=== PATIENT | female | born 1985 | race Caucasian/White ===

== ENCOUNTER 2020-04-30 10:30 | Outpatient (CLI) | payer MEDICARE, MEDICAID, SELFPAY ==
--- NOTE | ~2020-04-30 | MR_ITS ---
EXAMINATION: MR cervical spine wo con DATE: 04/30/2020 11:17 INDICATION: Chronic neck pain. TECHNIQUE: Magnetic resonance imaging (MRI) of the cervical spine was performed without intravenous c ontrast. Sequences included sagittal T2-weighted FSE, sagittal T2-weighted FS FSE, sagittal T1-weight ed FSE, axial MERGE, and axial T2-weighted FSE. COMPARISON: CT cervical spine 05/13/2018 FINDINGS: Bone alignment is normal. Vertebral body heights are normal. Intervertebral disc heights ar e normal. The spinal cord signal intensity is normal. The following disc levels are specifically disc ussed: C2-C3: The disc does not extend beyond the endplate margin. There is no uncovertebral joint osteoarth ritis. There is no facet joint osteoarthritis. There is no neural foraminal stenosis. There is no ino tral canal stenosis. C3-C4: There is a central protrusion. There is mild bilateral uncovertebral joint osteoarthritis. The re is no facet joint osteoarthritis. There is mild right neural foraminal stenosis. There is no centr al canal stenosis. C4-C5: There is a central protrusion. There is no uncovertebral joint osteoarthritis. There is no fac et joint osteoarthritis. There is no neural foraminal stenosis. There is no central canal stenosis. C5-C6: There is a left central protrusion. There is no uncovertebral joint osteoarthritis. There is n o facet joint osteoarthritis. There is no neural foraminal stenosis. There is no central canal stenos is. C6-C7: There is a left central protrusion. There is no uncovertebral joint osteoarthritis. There is n o facet joint osteoarthritis. There is no neural foraminal stenosis. There is no central canal stenos is. C7-T1: The disc does not extend beyond the endplate margin. There is no uncovertebral joint osteoarth ritis. There is mild bilateral facet joint osteoarthritis. There is no neural foraminal stenosis. The re is no central canal stenosis. IMPRESSION: 1. Mild cervical spondylosis. Reviewed, dictated and finalized at location A.
== END 2020-04-30 10:31 | disposition home or self-care (01) ==
PROVIDERS: PCP Internal Medicine
DX: M75.81 Other shoulder lesions, right shoulder (principal); M25.511 Pain in right shoulder; M47.892 Other spondylosis, cervical region
CPT/HCPCS: 72141

== ENCOUNTER 2021-04-04 07:42 | Outpatient (CLI) | payer MEDICARE, MEDICAID, SELFPAY ==
--- NOTE | 2021-04-16 23:19 | WPDSLEEPSTUD ---
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 The patient denies awakening from sleep short of breath. She occasionally awakens at night with heartburn, belching or cough. She occasionally snores but it is never loud enough that others complaint. She constantly has trouble sleeping when she has a cold. She denies waking up gasping for air throughout the night. She occasionally has breathing problems at night observed by herself or others. She frequently sweats excessively at night. She occasionally has heart palpitations or irregular heartbeats during the night. She rarely falls asleep during the day and never while driving. She denies sleep paralysis and cataplexy. She occasionally has vivid dream like scenes upon awakening or falling asleep. She frequently has nightmares. She frequently has thoughts racing through her mind. She occasionally feels sad or depressed. She constantly has anxiety. She constantly notices parts of her body jerk. She occasionally kicks during the night. She occasionally has crawling and aching feelings in her legs. She occasionally has leg pain during the night. She denies grinding her teeth during sleep and awakening with morning jaw pain. She has occasionally bothered by pain during the day and occasionally awakened by pain during the night. She constantly wakes up feeling stiff in the morning with sore or achy muscles. She constantly wakes up with pain in the neck, spine and other joints. In she goes to bed at 10:00 p.m. on weekdays and 11:00 p.m. on the weekends. She states that it takes her 3-4 hours to fall asleep if she does at all. She wakes up 3-4 times throughout the night. When she awakens, she will use the restroom or get a drink. She is unsure how long it takes her to fall back asleep. She wakes up at 7:00 a.m. on the weekdays and 8:00 a.m. on the weekends. She does not have a consistent amount of time that she gets for sleep every night. She will stay in bed for 10-15 minutes after waking up in the morning. She currently lives with her mom. She does not consume any caffeinated beverages within 2 hours of bedtime. She does not engage in physical exercise before bedtime. She will watch television before falling asleep. She does not take naps in the afternoon or the evening. She does not consume any caffeinated beverages during the day. She denies tobacco, alcohol and recreational drug use. [facility] Past Medical History Medical History Anxiety Back pain Depression Family history of diabetes mellitus (DM) Hyperlipidemia Hypertension Insomnia Migraine Obesity Seizure Shoulder pain Tendonitis of knee Vitamin D deficiency Family History Family History Father Hypertension Mother Cerebrovascular accident Grandparent Family history of hypercholesterolemia Carcinoma of colon Family history of malignant neoplasm of breast Other Diabetes mellitus Family history of arthritis Family history of malignant neoplasm Social History Social History Social History: Caffeine-None Smoking status: Never smoker Alcohol intake: never Medications Home Medications Medication Instructions Recorded Confirmed Type albuterol sulfate 90 mcg/actuation 1 puff INHALATION Q4H PRN 03/03/19 12/23/20 History aerosol inhaler alprazolam 1 mg tablet 1 mg PO DAILY PRN 03/03/19 12/23/20 History lbmmrlm-qmwqnebmum-[place]-caffeine 30 1
[2021-04-18 10:46] VITALS: BMI 45.9
== END 2021-04-05 06:46 | disposition home or self-care (01) ==
LOC: ANHCSM 07:43
PROVIDERS: PCP Internal Medicine; Visit Provider Internal Medicine Critical Care Medicine
DX: G47.19 Other hypersomnia (principal); G47.33 Obstructive sleep apnea (adult) (pediatric)
CPT/HCPCS: 95811

== ENCOUNTER 2022-03-30 08:48 | Outpatient (CLI) | payer MEDICARE, MEDICAID, SELFPAY ==
[2022-03-30 19:46] LABS: Alanine Aminotransferase 19 U/L (6-35); Albumin Level 4.2 g/dL (3.5-5.1); Alkaline Phosphatase 87 U/L (38-126); Anion Gap 6 mmol/L (8-16); Aspartate Amino Transferase 25 U/L (14-36); Bilirubin,Total 0.5 mg/dL (0.2-1.3); Blood Urea Nitrogen 15 mg/dL (7-17); Calcium 8.5 mg/dL (8.4-10.2); Carbon Dioxide 23 mmol/L (22-30); Chloride 105 mmol/L (98-107); Cholesterol 177 mg/dL (0-200); Estimated Glomerular Filt Rate 46; Glucose 100 mg/dL (65-110); HDL Direct 43 mg/dL; Potassium 4.3 mmol/L (3.4-5.0); Sodium 134 mmol/L (137-145); Triglycerides 189 mg/dL (<150)
[2022-03-30 19:58] LABS: LDL Cholesterol Direct 92 mg/dL
[2022-03-30 20:31] LABS: Basophils Percent Auto 0.5 % (0.2-1.2); Eosinophils Absolute Auto 0.3 K/mm3 (0-0.3); Eosinophils Percent Auto 3.6 % (0-4.4); Hematocrit 40.5 % (37.0-47.0); Immature Granulocyte Absolute 0.04 K/mm3 (0.00-0.031); Immature Granulocyte Percent A 0.5 % (0-0.5); Lymphocytes Absolute Auto 3.16 K/mm3 (0.9-3.2); Lymphocytes Percent Auto 38.8 % (18.3-44.2); Mean Corpuscular HGB Conc 34.6 g/dl (32-36); Mean Corpuscular Hemoglobin 29.4 pg (26-34); Mean Corpuscular Volume 85.1 fl (80-100); Mean Platelet Volume 9.9 fl (7.4-10.4); Monocytes Absolute Auto 0.6 K/mm3 (0.1-0.6); Monocytes Percent Auto 7.4 % (2.6-8.5); Neutrophils Percent Auto 49.2 % (45.5-73.1); Platelet Count Result 335 k/mm3 (150-375); Red Blood Count 4.76 M/mm3 (4.2-5.4); Red Cell Distribution Width 13.3 % (11.5-14.5); White Blood Count 8.2 K/mm3 (4.5-10.0)
== END 2022-03-30 08:49 | disposition home or self-care (01) ==
LOC: ANHGOSHLAB 08:50
PROVIDERS: PCP Internal Medicine; Visit Provider Nurse Practitioner
DX: E78.5 Hyperlipidemia, unspecified (principal); I10 Essential (primary) hypertension; Z13.29 Encounter for screening for other suspected endocrine disorder
CPT/HCPCS: 36415; 80053; 80061; 85025

== ENCOUNTER 2023-07-12 08:45 | Outpatient (CLI) | payer MEDICARE, MEDICAID, SELFPAY ==
[2023-07-12 13:29] LABS: Basophils Percent Auto 0.4 % (0.2-1.2); Eosinophils Absolute Auto 0.3 K/mm3 (0-0.3); Eosinophils Percent Auto 4.4 % (0-4.4); Hematocrit 43.6 % (37.0-47.0); Hemoglobin 14.6 g/dL (12.0-15.0); Immature Granulocyte Absolute 0.06 K/mm3 (0.00-0.031); Immature Granulocyte Percent A 0.8 % (0-0.5); Lymphocytes Absolute Auto 3.09 K/mm3 (0.9-3.2); Lymphocytes Percent Auto 39.7 % (18.3-44.2); Mean Corpuscular HGB Conc 33.5 g/dl (32-36); Mean Corpuscular Hemoglobin 30.2 pg (26-34); Mean Corpuscular Volume 90.3 fl (80-100); Mean Platelet Volume 9.7 fl (7.4-10.4); Monocytes Absolute Auto 0.5 K/mm3 (0.1-0.6); Monocytes Percent Auto 6.4 % (2.6-8.5); Neutrophils Absolute Auto 3.8 K/mm3 (1.3-6.7); Neutrophils Percent Auto 48.3 % (45.5-73.1); Platelet Count Result 287 k/mm3 (150-375); Red Blood Count 4.83 M/mm3 (4.2-5.4); Red Cell Distribution Width 13.9 % (11.5-14.5); White Blood Count 7.8 K/mm3 (4.5-10.0)
[2023-07-12 13:39] LABS: Vitamin D 25 Hydroxy 31.4 ng/mL
[2023-07-12 13:54] LABS: Alanine Aminotransferase 17 U/L (6-35); Albumin Level 4.2 g/dL (3.5-5.1); Alkaline Phosphatase 89 U/L (38-126); Anion Gap 10 mmol/L (4-12); Aspartate Amino Transferase 24 U/L (14-36); Bilirubin,Total 0.4 mg/dL (0.2-1.3); Blood Urea Nitrogen 10 mg/dL (7-17); Calcium 8.8 mg/dL (8.4-10.2); Carbon Dioxide 17 mmol/L (22-30); Chloride 111 mmol/L (98-107); Estimated Glomerular Filt Rate 55; Glucose 97 mg/dL (65-110); HDL Direct 45 mg/dL; Potassium 3.9 mmol/L (3.4-5.0); Sodium 138 mmol/L (137-145); Triglycerides 184 mg/dL (<150)
[2023-07-12 14:10] LABS: LDL Cholesterol Direct 127 mg/dL
[2023-07-12 14:34] LABS: Cholesterol 208 mg/dL (0-200)
== END 2023-07-12 08:46 | disposition home or self-care (01) ==
PROVIDERS: PCP Internal Medicine; Visit Provider Nurse Practitioner
DX: E78.5 Hyperlipidemia, unspecified (principal); E55.9 Vitamin D deficiency, unspecified; I10 Essential (primary) hypertension; Z13.29 Encounter for screening for other suspected endocrine disorder
CPT/HCPCS: 36415; 80053; 80061; 82306; 85025

== ENCOUNTER 2024-04-22 14:41 | Outpatient (CLI) | payer MEDICARE, MEDICAID, SELFPAY ==
--- OUTSIDE RECORDS SUMMARY | 2024-04-22 16:38 | XMS_ITS | Encounter Summary ---
Author Organization [facility] Address [address] [place] [address] Care Team Providers Care Teacher Selection Specialist Name Role Phone Hebert Rebollar DO Primary Care Provider Reason for Visit * Reason Onset Date Comments MEDICATION REFILL 07/24/2022 Encounter Details Date Type Department Care Team (Late st Contact Info) Description 07/24/2022 Refill [facility] - [facility]rology [address] [place] [address], [place] [address] Jh Woodall MD [address] [place] [phone] MEDICATION REFILL Social History Tobacco Use Types Packs/Day Years Used Date Smoking Tobacco: Never Smokeless Tobacco: Never Alcohol Use Standard Drinks/Week Comments No 0 (1 standard drink = 0.6 oz pur e alcohol) Sex and Gender Information Value Date Recorded Sex Assigned at Female 07/26/2022 6:33 PM CDT Gender Identity Female 07/26/2022 6:33 PM CDT Sexual Orientation Straight 07/26/2022 6: 33 PM CDT documented as of this encounter Miscellaneous Notes * Telephone Encounter - Chaya Wharton - 07/24/2022 2:43 PM CDT Refill Request Michelle Torres YVONNE: 01/25/2022Dec due: 07/24/2022 NOV scheduled: 07/24/2022 LRF: 11/14/2021 Qty Disp: 15 tablet # of refills: 0 Allergies: Allergies Allergen Reactions ??? Azithromycin Skin Reactions ??? Naproxen Swelling Pended Medication Order: Requested Prescriptions Pending Prescriptions Disp Refills ??? ALPRAZolam (Xanax) 1 MG tablet 15 tablet 0 Sig: Take 1 (one) tablet by mouth once daily as needed for Anxiety documented in this encounter Plan of Treatment Upcoming Encounters Date Type Department Care Team (Late st Contact Info) Description 04/24/2024 10:30 AM CDT Office Visit [facility] - [facility] [place] [phone] Yennifer Wade APRN-SENIOR PROJECT ARCHITECT [address] [place] [phone] documented as of this encounter Visit Diagnoses Not on filedocumented in this encounter Care Teams Teacher Selection Specialist Relationship Specialty Start Date End Date Hebert Rebollar DO PCP - General 05/16/16 documented as of this encounter
--- OUTSIDE RECORDS SUMMARY | 2024-04-22 16:38 | XMS_ITS | Encounter Summary ---
Author Organization [facility] Address [address] [place] [address] Care Team Providers Care Azure Principal Solution Specialist Name Role Phone Hebert Rebollar DO Primary Care Provider [phone] Reason for Visit * Reason Onset Date Comments MEDICATION REFILL 12/19/2020 Encounter Details Date Type Department Care Team (Late st Contact Info) Description 12/19/2020 Refill [facility] [address] [place] [address] Jh Woodall MD [address] [place] [phone] MEDICATION REFILL Social History Tobacco Use Types [...] encounter Miscellaneous Notes * Telephone Encounter - Bernie Grider - 12/20/2020 8:17 AM CST Last OV 07-02-20 UTIVE MARKETING ASSISTANT documented in this encounter Plan of Treatment Upcoming Encounters Date Type Department Care Team (Late st Contact Info) Description 04/24/2024 10:30 AM CDT Office Visit [facility] - [facility]rology [address] [place] [phone] Yennifer Wade APRN-POLO COACH [address] [place] [phone] documented as of this encounter Visit Diagnoses Not on filedocumented in this encounter Care Teams Azure Principal Solution Specialist Relationship Specialty Start Date End Date Hebert Rebollar DO PCP - General 05/16/16 documented as of this encounter
--- OUTSIDE RECORDS SUMMARY | 2024-04-22 16:38 | XMS_ITS | Encounter Summary ---
Author Organization [facility] Address [address] [facility] [place] [address] Care Team Providers Care Home Insurance Agent Name Role Phone Hebert Rebollar DO Primary Care Provider [phone] Reason for Visit * Reason Onset Date Comments MEDICATION REFILL 06/16/2020 Encounter Details Date Type Department Care Team (Late Contact Info) Description 06/16/2020 Refill [facility] [address] [place] [address] Jh Woodall MD [address] [place] [phone] MEDICATION REFILL Social History Tobacco Use Types [...] PM CDT documented as of this encounter Plan of Treatment Upcoming Encounters Date Type Department Care Team (Late Contact Info) Description 04/24/2024 10:30 AM CDT Office Visit [facility] - [facility]rology [address] [place] [phone] Yennifer Wade, SUCTION DRUM DRIER OPERATOR-ACCOUNT ASSOCIATE [address] [place] [phone] documented as of this encounter Visit Diagnoses Diagnosis Migraine without aura and without status migrainosus, not intractable Migraine without aura, without mention of intractable migraine without mention of status migrainosus documented in this encounter Care Teams Home Insurance Agent Relationship Specialty Start Date End Date Hebert Rebollar DO PCP - General 05/16/16 documented as of this encounter
--- OUTSIDE RECORDS SUMMARY | 2024-04-22 16:38 | XMS_ITS | Clinical Summary ---
Author Organization [facility] Address [address] [place] [address] Care Team Providers Care Ad Setter Name Role Phone Hebert Rebollar DO Primary Care Provider [phone]- [phone] Allergies Active Allergy Reactions Criticality Noted Date Comments Azithromycin Swelling Medium 07/04/2016 Naproxen Rash,Swelling Medium 07/04/2016 Reaction: Rash, Prednisone Hives Medium 04/11/2024 Sumatriptan Other (See comments) Low 09/20/2023 Has panic attacks Medications albuterol sulfate (PROAIR RESPICLICK) 90 mcg/actuation aerosol powdr breath activated inhale 2 puff by inhalation route every 4 - 6 hours as needed 0 Inhaler 0 017 Active zonisamide (ZONEGRAN) 100 mg capsule TAKE 4 CAPSULES BY MOUTH ONCE DAILY 021 Active amLODIPine (NORVASC) 10 mg tablet Take 1 tablet (10 mg total) by mouth daily Active mupirocin (BACTROBAN) 2 % ointment Apply topically 2 (two) times a day 024 Active gabapentin (NEURONTIN) 300 mg capsuleIndicat ions:Bilateral occipital neuralgia,Intr actable migraine without aura and without status migrainosus Take 1 capsule (300 mg total) by mouth 3 (three) times a day 270 capsule 3 024 Active galcanezumab-g nlm (Emgality Syringe) 120 mg/mL syringeIndicat ions:Bilateral occipital neuralgia,Intr actable migraine without aura and without status migrainosus Inject 120 mg under the skin every 30 (thirty) days 1 mL 11 Active naloxone (NARCAN) 4 mg/actuation spray,non-aero solIndications :Intractable migraine without aura and without status migrainosus Administer 1 spray into affected nostril(s) as needed for opioid reversal or respiratory depression Call 911. Administer a single spray in one nostril. Repeat every 3 minutes as needed if no or minimal response. 1 each 3 Active butalbital-angelito taminophen-caf feine-codeine (FIORICET WITH CODEINE) 28-270-54-30 mg per capsuleIndicat ions:Bilateral occipital neuralgia,Intr actable migraine without aura and without status migrainosus Take 1 capsule by mouth every 6 (six) hours as needed for headaches (No additional Tylenol or acetaminophen with this medication.) 8 capsule 3 025 Active hydroCHLOROthi azide 12.5 mg tablet Take 1 tablet (12.5 mg total) by mouth daily Active candesartan (ATACAND) 4 mg tabletIndicati ons:Intractabl e migraine without aura and without status migrainosus Take 1 tablet (4 mg total) by mouth daily 30 tablet 2025 Active ALPRAZolam (XANAX) 1 mg tabletIndicati ons:Bilateral occipital neuralgia,Intr actable migraine without aura and without status migrainosus Take 1 tablet (1 mg total) by mouth as needed for anxiety 8 tablet 3 025 Active ALPRAZolam (XANAX) 1 mg tabletIndicati ons:Bilateral occipital neuralgia,Intr actable migraine without aura and without status migrainosus Take 1 tablet (1 mg total) by mouth as needed for anxiety 8 tablet 3 024 2024 Discontinued(R eorder) butalbital-angelito taminophen-caf feine-codeine (FIORICET WITH CODEINE) 54-470-43-30 mg per capsuleIndicat ions:Bilateral occipital neuralgia,Intr actable migraine without aura and without status migrainosus Take 1 capsule by mouth every 4 (four) hours as needed for headaches 8 capsule 3 024 2024 Discontinued Active Problems Problem Noted Date Diagnosed Date Intractable migraine without aura and without status migrainosus 10/03/2017 Assessment & Plan (04/11/2024 12:02 PM [facility]): Patient has been doing well on Emgality 120 mg monthly, gabapentin 300 mg 3 times a day and sparing use of Fioricet with codeine. She had an uptake in her migraines in February which corresponded to an elevation of her blood pressure. She is currently on amlodipine and hydrochlorothiazide but continues to record elevated blood pressures. We discussed therapeutic options. We will add candesartan which helps with migraines and blood pressure. Side effects reviewed. Start candesartan 4 mg daily. Continue Emgality 120 mg monthly. Continuous sparing use of Fioricet with codeine. Continue Xanax which also seems to help when she has a headache. Side effects reviewed. Follow up in six months Assessment & Plan (09/20/2023 12:10 PM CDT): The patient reports that she is doing well on her combination of Emgality for prevention and gabapentin for both treatment of her headaches and her occipital neuralgia. She reports no side effects from these medications She takes Xanax or Fioricet with codeine sparingly for acute treatment with benefit. She reports no side effects. Continue these medications. Follow up in six months. Bilateral occipital neuralgia 10/03/2017 Seizures 12/11/2016 Assessment & Plan (04/11/2024 12:01 PM [facility]): Continue zonisamide 400 mg daily. Follow up with the epilepsy clinic at [facility]. Encounters Date Type Department Care Team Description 04/14/2024 Results [facility] [address] [place] [phone] Jh Woodall MD 04/11/2024 11:35 AM [facility] Lab [address] [place] [id number] Bilateral occipital neuralgia; Intractable migraine without aura and without status migrainosus 04/11/2024 11:00 AM [facility] [address] [place] [phone] Jh Woodall MD Bilateral occipital neuralgia; Intractable migraine without aura and without status migrainosus from Last 3 Months Surgical History Surgery Date Site/Laterality Comments SECTION c section BRAIN SURGERY brain surgery SECTION Medical History Medical History Date Comments Asthma Asthma; Comments : DWL 02/29/2016 - Seizure disorder (HCC) Seizure d isorder Hx Other Medical Headache, migra ine Depression Migraines Family History Medical History Relation Name Comments Cancer Other 1 Family history of Cancer, unknown; Arthritis Other 2 Family history of Arthritis; Diabetes Other 3 Family history of Diabetes mellitus; Alcohol abuse Other 4 Family history of Alcoholism; Hypertension Other 5 Family history of Hypertension; Mental illness Other 6 Family histor y of Mental illness; Seizures Other 7 Family history of Seizure disorder; Stroke Other 8 Family history of Stroke; Relation Name Status Comments Other 1 Other 2 Other 3 Other 4 Other 5 Other 6 Other 7 Other 8 Social History Tobacco Use Types Packs/Day Years Used Date Smoking Tobacco: Never Smokeless Tobacco: Never Alcohol Use Standard Drinks/Week Comments Never 0 (1 standard drink = 0.6 oz pur e alcohol) AUDIT-C Answer Date Recorded Q1: How often do you have a drink containing alcohol? Never 09/20/2023 Q2: How many drinks containi ng alcohol do you have on a typical day when you are drinking? Patient does not drink Q3: How often do you have si x or more drinks on one occasion? Never 09/20/2023 Comments Unknown Sex and Gender Information Value Date Recorded Sex Assigned at Not on file Legal Sex Female 4:21 AM [facility] Gender Identity Not on file Sexual Orientation Not on file Obstetrics History Last Filed Vital Signs Vital Sign Reading Time Taken Comments Blood Pressure 132/98 04/11/2024 10:56 AM [facility] Pulse 89 04/11/2024 10:56 AM [facility] Temperature 36.3 C (97.3 F) 04/22/2020 9:16 AM [facility] Respiratory Rate 17 09/20/2023 9:59 AM CDT Oxygen Saturation 99% 04/11/2024 10:56 AM [facility] Inhaled Oxygen Concentration - - Weight 108.9 kg (240 lb) 04/11/2024 10:56 AM [facility] Height 154.9 cm (5' 1 ) 04/11/2024 10:56 AM [facility] Body Mass Index 45.35 04/11/2024 10:56 AM [facility] Plan of Treatment Health Maintenance Due Date Last Done Comments Breast Cancer Screening-Mammogram 1983 Cervical Cancer Screening 1983 Depression Screening 1983 Hepatitis C Screening 1983 DTaP/Tdap/Td Vaccine (1 - Tdap) 07/19/1994 Varicella Vaccines (1 of 2 - 13+ 2-dose series) 07/19/1996 Hepatitis B Screening 07/19/2001 Regular Well Visit/Exam 18-64 07/19/2001 Covid-19 Vaccine (2 - 2023-2 5 season) 2023 08/06/2020 Influenza Vaccine (#1) 2023 HPV Vaccines Aged Out No longer eligi ble based on patient's age to complete this topic Pneumococcal vaccine <65 Aged Out No longer eligible based on patient's age to complete this topic Procedures Procedure Name Priority Date/Time Associated Diagnosis Comments EGFR Routine 04/11/2024 11:36 AM [facility] Bilateral occipital neuralgia Intractable migraine without aura and without status migrainosus DIFFERENTIAL AUTO Routine 04/11/2024 11: 36 AM [facility] Bilateral occipital neuralgia Intractable migraine without aura and without status migrainosus CBC WITH AUTO DIFFERENTIAL Routine 04/11/2024 11:36 AM [facility] Bilateral occipital neuralgia Intractable migraine without aura and without status migrainosus COMPREHENSIVE METABOLIC PANEL Routine 04/11/2024 11:36 AM [facility] Bilateral occipital neuralgia Intractable migraine without aura and without status migrainosus from Last 3 Months Results * eGFR (04/11/2024 11:36 AM [facility]) eGFR 61 >=60 mL/min/1. 73 m2 Comment: Interpretive Data Reference Interval Normal >/= 90 mL/min/1.73m2 Mildly decreased* 60 - 89 mL/min/1.73m2 Mildly to moderately decreased 45 - 59 mL/min/1.73m2 Moderately to severely decreased 30 - 44 mL/min/1.73m2 Severely decreased 15 - 29 mL/min/1.73m2 Kidney Failure < 15 mL/min/1.73m2 *Relative to young adult level Estimated glomerular filtration rate is determined by the 2020 CKD-EPI equation recommended by the National Kidney Foundation (A Unifying Approach to GFR Estimation: Recommendations of the NKF-ASK Task Force on Reassessing the Inclusion of Race in Diagnosing Kidney Disease, JASN 2020). The CKD-EPI equation should not be used for patients with unstable renal function and has not been validated in children and those over 70. Current interpretive data was last reviewed 2020. Blood 04/11/2024 11:3 6 AM [facility] 04/11/2024 3:22 PM [facility] us Jh Woodall MD LAB BLOOD ORDERABLES Dalia jaeger Result [facility] [address] [place] [address] * Differential, auto (04/11/2024 11:36 AM [facility]) Neutrophil abs 3.7 1.5 - 6.5 K/cumm Imm gran abs 0.0 0.0 - 0.1 K/cumm [facility] Lymphocyte abs 2.6 0.8 - 3.3 K/cumm [facility] Monocyte abs 0.6 0.2 - 0.8 K/cumm [facility] Eosinophil abs 0.3 0.0 - 0.5 K/cumm [facility] Basophil abs 0.0 0.0 - 0.1 K/cumm [facility] Neutrophil pct 50.8 % [facility] Comment: Interpretive Data Percent cell count reference ranges are not reported, since discordance with absolute values may lead to misinterpretation of CBC data. Current Interpretive Data was last revised on 2017. Imm gran pct 0.4 % [facility] Comment: Interpretive Data Percent cell count reference ranges are not reported, since discordance with absolute values may lead to misinterpretation of CBC data. Current Interpretive Data was last revised on 2017. Lymphocyte pct 36.2 % [facility] Comment: Interpretive Data Percent cell count reference ranges are not reported, since discordance with absolute values may lead to misinterpretation of CBC data. Current Interpretive Data was last revised on 2017. Monocyte pct 8.5 % [facility] Comment: Interpretive Data Percent cell count reference ranges are not reported, since discordance with absolute values may lead to misinterpretation of CBC data. Current Interpretive Data was last revised on 2017. Eosinophil pct 3.6 % [facility] Comment: Interpretive Data Percent cell count reference ranges are not reported, since discordance with absolute values may lead to misinterpretation of CBC data. Current Interpretive Data was last revised on 2017. Basophil pct 0.5 % [facility] Comment: Interpretive Data Percent cell count reference ranges are not reported, since discordance with absolute values may lead to misinterpretation of CBC data. Current Interpretive Data was last revised on 2017. Blood 04/11/2024 11:3 6 AM [facility] 04/11/2024 3:22 PM [facility] Jh Woodall MD LAB BLOOD ORDERABLES Dalia jaeger Result [facility] [address] Department of Laboratories [place], [place] [id number] * CBC with auto differential (04/11/2024 11:36 AM [facility]) WBC 7.3 3.8 - 9.9 K/cumm Hgb 14.2 11.9 - 15.5 g/dL [facility] Hct 41.3 35.6 - 45.5 % [facility] Plt 363 150 - 400 K/cumm [facility] MPV 9.6 9.1 - 12.3 fL [facility] RBC 4.70 3.90 - 5.20 M/cumm [facility] MCV 87.9 81.3 - 96.4 fL [facility] MCH 30.2 27.1 - 33.3 pg [facility] MCHC 34.4 32.3 - 35.7 g/dL [facility] RDW CV 13.7 11.1 - 14.9 % [facility] RDW SD 44.1 35.7 - 48.1 fL [facility] NRBC abs 0.00 0.00 - 0.01 K/cumm [facility] Blood 04/11/2024 11:3 6 AM [facility] 04/11/2024 3:22 PM [facility] us Jh Woodall MD LAB BLOOD ORDERABLES Dalia mil Result [facility] [address] Department [place] [address] * (ABNORMAL) Comprehensive metabolic panel (04/11/2024 11:36 AM [facility]) Sodium 139 135 - 145 mmol/L Potassium, pl 3.4 3.3 - 4.9 mmol/L [facility] Chloride 103 97 - 110 mmol/L [facility] CO2 19(L) 22 - 32 mmol/L [facility] Anion gap 17(H) 2 - 15 mmol/L [facility] BUN 19 6 - 25 mg/dL [facility] Creatinine 1.16(H) 0.60 - 1.10 mg/dL [facility] Glucose 104 70 - 199 mg/dL [facility] Comment: Interpretive Data Fasting glucose >/= 126 mg/dl is diagnostic for diabetes. Fasting is defined as no caloric intake for at least 8 hours. Fasting glucose between 100 mg/dl to 125 mg/dl is diagnostic of prediabetes. In a patient with classic symptoms of hyperglycemia or hyperglycemic crisis, a random glucose >/= 200 mg/dl is diagnostic for diabetes. In the absence of unequivocal hyperglycemia, results should be confirmed by repeat testing. The classification and Diagnosis of Diabetes Diabetes Care 202; 46: S19-S40. Current interpretive data was last revised 2022. Calcium 9.4 8.5 - 10.3 mg/dL [facility] Bilirubin, total 0.2 0.1 - 1.2 mg/dL [facility] Protein, pl 7.6 6.5 - 8.5 g/dL [facility] Albumin 4.4 3.5 - 5.0 g/dL [facility] Alk phos 93 40 - 130 Units/L [facility] ALT 19 7 - 45 Units/L [facility] AST 18 10 - 45 Units/L [facility] Blood 04/11/2024 11:3 6 AM [facility] 04/11/2024 3:22 PM [facility] Jh Woodall MD LAB BLOOD ORDERABLES Dalia l Result [facility] [address] Department [place] [address] from Last 3 Months Insurance [employer] Member Subscriber Plan / Payer ( fective 2020-Present) Name:Michelle Torres E Relation to Subscriber:Self Name:Michelle Torres E Payer ID:[id number] Group ID:Not on file Type:MEDICAID [place] Address: [place] [id number] [employer] MEDIC[employer] HMO Care Teams Ad Setter Relationship Specialty Start Date End Date Hebert Rebollar DO PCP - General 05/12/16
--- OUTSIDE RECORDS SUMMARY | 2024-04-22 16:38 | XMS_ITS | Referral Summary ---
Author Organization [facility] Address [address] [place] [address] Care Team Providers Care Beveller Operator Name Role Phone Hebert Rebollar DO Primary Care Provider +1- [phone] Encounters Date Type Department Care Team Description 04/14/2024 Results [facility] [address] [place] [phone] Jh Woodall MD 04/11/2024 11:35 AM [facility] [address] [phone] Bilateral occipital neuralgia; Intractable migraine without aura and without status migrainosus 04/11/2024 11:00 AM [facility] [address] [place] [phone] Jh Woodall MD Bilateral occipital neuralgia; Intractable migraine without aura and without status migrainosus from Last 3 Months Allergies Active Allergy Reactions Criticality Noted Date [...] every 30 (thirty) days 1 mL 11 024 Active naloxone (NARCAN) 4 mg/actuation spray,non-aero solIndications :Intractable migraine without aura and without status migrainosus Administer 1 spray into affected nostril(s) as needed for opioid reversal or respiratory depression Call 911. Administer a single spray in one nostril. Repeat every 3 minutes as needed if no or minimal response. 1 each 3 024 Active butalbital-angelito taminophen-caf feine-codeine (FIORICET WITH CODEINE) 96-405-49-30 mg per capsuleIndicat ions:Bilateral occipital neuralgia,Intr actable migraine without aura and without status migrainosus Take 1 capsule by mouth every 6 (six) hours as needed for headaches (No additional Tylenol or acetaminophen with this medication.) 8 capsule 3 025 Active hydroCHLOROthi azide 12.5 mg tablet Take 1 tablet (12.5 mg total) by mouth daily 025 Active candesartan (ATACAND) 4 mg tabletIndicati ons:Intractabl e migraine without aura and without status migrainosus Take 1 tablet (4 mg total) by mouth daily 30 tablet 11 025 2025 Active ALPRAZolam (XANAX) 1 mg tabletIndicati [...] eorder) butalbital-angelito taminophen-caf feine-codeine (FIORICET WITH CODEINE) 20-238-82-30 mg per capsuleIndicat ions:Bilateral occipital neuralgia,Intr actable migraine without aura and without status migrainosus Take 1 capsule by mouth every 4 (four) hours as needed for headaches 8 capsule 3 024 2024 Discontinued Active Problems Problem Noted Date Diagnosed Date Intractable migraine without aura and without status migrainosus 10/03/2017 Assessment & Plan (04/11/2024 12:02 PM [facility]): Patient has been doing well on Emgality [...] 12/11/2016 Assessment & Plan (04/11/2024 12:01 PM [facility]): Continue zonisamide 400 mg daily. Follow up with the epilepsy clinic at [facility]. Social History Tobacco Use Types Packs/Day Years [...] on file Legal Sex Female 4:21 AM [facility] Gender Identity Not on file Sexual Orientation Not on file Last Filed Vital Signs Vital Sign Reading Time Taken Comments Blood Pressure 132/98 04/11/2024 10:56 AM [facility] Pulse 89 04/11/2024 10:56 AM [facility] Temperature 36.3 C (97.3 F) 04/22/2020 9:16 AM [facility] Respiratory Rate 17 09/20/2023 9:59 AM CDT Oxygen Saturation 99% 04/11/2024 10:56 AM [facility] Inhaled Oxygen Concentration - - Weight 108.9 kg (240 lb) 04/11/2024 10:56 AM [facility] Height 154.9 cm (5' 1 ) 04/11/2024 10:56 AM [facility] Body Mass Index 45.35 04/11/2024 10:56 AM [facility] Plan of Treatment Not on file Procedures Procedure Name Priority Date/Time Associated Diagnosis Comments EGFR Routine 04/11/2024 11:36 AM [facility] Bilateral occipital neuralgia Intractable migraine without aura and without status migrainosus DIFFERENTIAL AUTO Routine 04/11/2024 11: 36 AM [facility] Bilateral occipital neuralgia Intractable migraine without aura and without status migrainosus CBC WITH AUTO DIFFERENTIAL Routine 04/11/2024 11:36 AM [facility] Bilateral occipital neuralgia Intractable migraine without aura and without status migrainosus COMPREHENSIVE METABOLIC PANEL Routine 04/11/2024 11:36 AM [facility] Bilateral occipital neuralgia Intractable migraine without aura and without status migrainosus from Last 3 Months Results * eGFR (04/11/2024 11:36 AM [facility]) eGFR 61 >=60 mL/min/1. 73 m2 Comment: [...] reviewed 2020. Blood 04/11/2024 11:3 6 AM [facility] 04/11/2024 3:22 PM [facility] Jh Woodall MD LAB BLOOD ORDERABLES Dalia mil Result [facility] [address] [place] [address] * Differential, auto (04/11/2024 11:36 AM [facility]) Neutrophil abs 3.7 1.5 - 6.5 K/cumm Imm gran abs 0.0 0.0 - 0.1 K/cumm [facility] Lymphocyte abs 2.6 0.8 - 3.3 K/cumm [facility] Monocyte abs 0.6 0.2 - 0.8 K/cumm [facility] Eosinophil abs 0.3 0.0 - 0.5 K/cumm [facility] Basophil abs 0.0 0.0 - 0.1 K/cumm [facility] Neutrophil pct 50.8 % [facility] Comment: Interpretive Data Percent cell count reference ranges are not reported, since discordance with absolute values may lead to misinterpretation of CBC data. Current Interpretive Data was last revised on 2017. Imm gran pct 0.4 % [facility] Comment: Interpretive Data Percent cell count reference ranges are not reported, since discordance with absolute values may lead to misinterpretation of CBC data. Current Interpretive Data was last revised on 2017. Lymphocyte pct 36.2 % [facility] Comment: Interpretive Data Percent cell count reference ranges are not reported, since discordance with absolute values may lead to misinterpretation of CBC data. Current Interpretive Data was last revised on 2017. Monocyte pct 8.5 % [facility] Comment: Interpretive Data Percent cell count reference ranges are not reported, since discordance with absolute values may lead to misinterpretation of CBC data. Current Interpretive Data was last revised on 2017. Eosinophil pct 3.6 % [facility] Comment: Interpretive Data Percent cell count reference ranges are not reported, since discordance with absolute values may lead to misinterpretation of CBC data. Current Interpretive Data was last revised on 2017. Basophil pct 0.5 % [facility] Comment: Interpretive Data Percent cell count reference ranges are not reported, since discordance with absolute values may lead to misinterpretation of CBC data. Current Interpretive Data was last revised on 2017. Blood 04/11/2024 11:3 6 AM [facility] 04/11/2024 3:22 PM [facility] us Jh Woodall MD LAB BLOOD ORDERABLES Dalia jaeger Result [facility] [address] Department [place] [address] * CBC with auto differential (04/11/2024 11:36 AM [facility]) WBC 7.3 3.8 - 9.9 K/cumm Hgb 14.2 11.9 - 15.5 g/dL [facility] Hct 41.3 35.6 - 45.5 % [facility] Plt 363 150 - 400 K/cumm [facility] MPV 9.6 9.1 - 12.3 fL [facility] RBC 4.70 3.90 - 5.20 M/cumm [facility] MCV 87.9 81.3 - 96.4 fL [facility] MCH 30.2 27.1 - 33.3 pg [facility] MCHC 34.4 32.3 - 35.7 g/dL [facility] RDW CV 13.7 11.1 - 14.9 % [facility] RDW SD 44.1 35.7 - 48.1 fL [facility] NRBC abs 0.00 0.00 - 0.01 K/cumm [facility] Blood 04/11/2024 11:3 6 AM [facility] 04/11/2024 3:22 PM [facility] Jh Woodall MD LAB BLOOD ORDERABLES Dalia l Result [facility] [address] Department [place] [address] * (ABNORMAL) Comprehensive metabolic panel (04/11/2024 11:36 AM [facility]) Sodium 139 135 - 145 mmol/L Potassium, pl 3.4 3.3 - 4.9 mmol/L [facility] Chloride 103 97 - 110 mmol/L [facility] CO2 19(L) 22 - 32 mmol/L [facility] Anion gap 17(H) 2 - 15 mmol/L [facility] BUN 19 6 - 25 mg/dL [facility] Creatinine 1.16(H) 0.60 - 1.10 mg/dL [facility] Glucose 104 70 - 199 mg/dL [facility] Comment: Interpretive Data Fasting glucose >/= [...] 2022. Calcium 9.4 8.5 - 10.3 mg/dL [facility] Bilirubin, total 0.2 0.1 - 1.2 mg/dL [facility] Protein, pl 7.6 6.5 - 8.5 g/dL [facility] Albumin 4.4 3.5 - 5.0 g/dL [facility] Alk phos 93 40 - 130 Units/L [facility] ALT 19 7 - 45 Units/L [facility] AST 18 10 - 45 Units/L [facility] Blood 04/11/2024 11:3 6 AM [facility] 04/11/2024 3:22 PM [facility] Jh Woodall MD LAB BLOOD ORDERABLES Dalia l Result [facility] [address] Department [place] [address] from Last 3 Months Insurance [employer] [facility] MEDICARE HMO Care Teams Beveller Operator Relationship Specialty Start Date End Date Hebert Rebollar DO PCP - General 05/12/16
--- OUTSIDE RECORDS SUMMARY | 2024-04-22 16:38 | XMS_ITS | Clinical Summary ---
Author Organization [facility] Address [address] [place] [address] Care Team Providers Care Speedometer Mechanic Name Role Phone Hebert Rebollar DO Primary Care Provider [phone] Source Comments [facility],non-owned Affiliates and Associated Physician Practices is amultiple site organization consisting of ambulatory clinics and hospital sitesin [place], [place], [place] and [place]. This disclosure is being madepursuant to the Care Everywhere program and may not contain all information available regarding this patient. Last updated 17.[facility] Allergies Active Allergy Reactions Criticality Noted Date Comments Azithromycin Skin Reactions Medium 07/04/2016 Naproxen Swelling Low 07/04/2016 Sumatriptan Other 04/19/2023 Panic attack Medications * Be aware that medications may not be up to date on this document. Alwaysverify current medications with the patient. Medication Sig Dispensed Refills Start Date End Date Status albuterol HFA (PROVENTIL;VENTOL IN;PROAIR) 108 (90 Base) MCG/ACT inhaler Inhale 2 (two) puffs by mouth every 6 hours as needed Active albuterol (PROVENTIL;VENTOL IN) (2.5 MG/3ML) 0.083% nebulizer solution Inhale by mouth 4 times daily as needed for Shortness of Breath or Wheezing Active amLODIPine (Norvasc) 10 MG tablet Take 1 (one) tablet by mouth once daily 09/13/2021 Active CPAP Use as directed Active gabapentin (Neurontin) 300 MG capsuleIndication s:Migraine without aura and without status migrainosus, not intractable,Bilat eral occipital neuralgia Take 1 (one) capsule by mouth 3 times daily 270 capsule 1 03/06/2023 Active Galcanezumab-gnlm (Emgality) 120 MG/ML auto-injector penIndications:Mi graine without aura and without status migrainosus, not intractable 2 injection (240 mg) first month [loading dose] followed by 1 injection (120 mg) monthly. 2 mL 5 03/07/2023 Active butalbital-acetam inophen-caffeine (Fioricet) 50-325-40 MG tabletIndications :Migraine without aura and without status migrainosus, not intractable Take 1 (one) tablet by mouth every 6 hours as needed for Headache (No additional Tylenol or acetaminophen with this medication.) 15 tablet 1 06/14/2023 Active pqgn-ubnn-lrjbeuc cesar-codeine (Fioricet With Codeine) 87-705-73-30 MG capsuleIndication s:Migraine without aura and without status migrainosus, not intractable TAKE 1 CAPSULE BY MOUTH EVERY 6 HOURS NEEDED FOR HEADACHE. NO ADDITIONAL TYLENOL OR ACETAMINPHEN WITH THIS MEDICATION 15 capsule 5 06/27/2023 Active mupirocin (Bactroban) 2 % ointment APPLY TOPICALLY TWICE DAILY 06/30/2023 Active ALPRAZolam (Xanax) 1 MG tablet Take 1 (one) tablet by mouth once daily as needed for Anxiety 15 tablet 08/06/2023 Active zonisamide (Zonegran) 100 MG capsule TAKE 4 CAPSULES ONE TIME DAILY 360 capsule 3 01/31/2024 Active Active Problems Problem Noted Date Diagnosed Date Intractable migraine without aura and without status migrainosus 10/03/2017 Bilateral occipital neuralgia 10/03/2017 Seizures 12/11/2016 Encounters Date Type Department Care Team Description 01/31/2024 Refill [facility] - [facility]rology [address] [place] [phone] Yennifer Wade APRN-LUIS ENRIQUE Refill Request from Last 3 Months Social History Tobacco Use Types Packs/Day Years Used Date Smoking Tobacco: Never Smokeless Tobacco: Never Tobacco Cessation:Counseling Given: Not Answered Alcohol Use Standard Drinks/Week Comments No 0 (1 standard drink = 0.6 oz pur e alcohol) Sex and Gender Information Value Date Recorded Sex Assigned at Female 07/26/2022 6:33 PM CDT Gender Identity Female 07/26/2022 6:33 PM CDT Sexual Orientation Straight 07/26/2022 6: 33 PM CDT Last Filed Vital Signs Vital Sign Reading Time Taken Comments Blood Pressure 117/78 07/16/2023 1:46 PM CDT Pulse 93 07/16/2023 1:46 PM CDT Temperature 36.5 C (97.7 F) 01/25/2022 8:48 AM PARK INTERPRETIVE SPECIALIST Respiratory Rate 18 12/27/2016 8:08 AM PARK INTERPRETIVE SPECIALIST Oxygen Saturation 99% 07/16/2023 1:46 PM CDT Inhaled Oxygen Concentration - - Weight 109.8 kg (242 lb) 07/16/2023 1:46 PM CDT Height 154.9 cm (5' 1 ) 07/16/2023 1:46 PM CDT Body Mass Index 45.73 07/16/2023 1:46 PM CDT Plan of Treatment Upcoming Encounters Date Type Department Care Team (Late st Contact Info) Description 04/24/2024 10:30 AM CDT Office Visit [facility]rology [address] [place] [address] Yennifer Wade, DIAZ-GLASSWARE DEFECT REPAIRER [address] [place] [address] Health Maintenance Due Date Last Done Comments LIPID TESTING 1983 MAMMOGRAM 1985 Opioid Medication Agreement - Annual 1983 PAP SMEAR 1983 HIV SCREENING 07/19/1998 HEPATITIS C SCREENING 07/15/2001 DTAP/TDAP/TD VACCINES (1 - Tdap) 07/19/2002 HEPATITIS B VACCINE (1 of 3 - 19+ 3-dose series) 07/19/2002 COVID-19 VACCINE (1 - 2023-2 5 season) 2023 INFLUENZA VACCINE (#1) 2023 DEPRESSION SCREENING 02/13/2024 MEDICARE AWV CALENDAR YEAR 2024 SCREENING FOR DIABETES 04/22/2024 9, 12/25/2016 ZOSTER VACCINE (1 of 2) 07/19/2033 HIB VACCINE Aged Out No longer eligi ble based on patient's age to complete this topic HPV VACCINE Aged Out No longer eligi ble based on patient's age to complete this topic MENINGOCOCCAL (Group B) VACCINE Aged Out No longer eligible b ased on patient's age to complete this topic MENINGOCOCCAL VACCINE Aged Out No geovanni leobardo eligible based on patient's age to complete this topic PNEUMOCOCCAL VACCINE Aged Out No long er eligible based on patient's age to complete this topic Procedures Procedure Name Priority Date/Time Associated Diagnosis Comments COMPREHENSIVE METABOLIC PANEL 11/11/2018 8:24 AM CDT from Last 3 Months or Most Recently Relevant to Health Maintenance Results * (ABNORMAL) COMPREHENSIVE METABOLIC PANEL (11/11/2018 8:24 AM CDT) Glucose 98 65 - 99 mg/dL [facility] INSURANCE BILL BUN 8 6 - 20 mg/dL [facility] INSURANCE BILL Creatinine 0.88 0.57 - 1.00 mg/dL [facility] INSURANCE BILL BUN/Creatinine Ratio 9 9 - 23 [facility] INSURANCE BILL Sodium 141 134 - 144 mmol/L [facility] INSURANCE BILL Potassium 4.3 3.5 - 5.2 mmol/L [facility] INSURANCE BILL Chloride 107(H) 96 - 106 mmol/L [facility] INSURANCE BILL CO2 18(L) 20 - 29 mmol/L [facility] INSURANCE BILL Calcium 9.0 8.7 - 10.2 mg/dL [facility] INSURANCE BILL Protein Total 6.8 6.0 - 8.5 g/dL [facility] INSURANCE BILL Albumin 4.2 3.5 - 5.5 g/dL [facility] INSURANCE BILL Globulin Total 2.6 1.5 - 4.5 g/dL [facility] INSURANCE BILL Albumin/Globulin Ratio 1.6 1.2 - 2.2 [facility] INSURANCE BILL Bilirubin Total 0.2 0.0 - 1.2 mg/dL [facility] INSURANCE BILL Alkaline Phosphatase 94 39 - 117 IU/L [facility] INSURANCE BILL AST 15 0 - 40 IU/L [facility] INSURANCE BILL ALT 18 0 - 32 IU/L [facility] INSURANCE BILL Comment:FASTING 11/11/2018 8:24 AM CDT 11/11/2018 Narrative Resulting Agency Comment Lab Testing performed at: [facility] [address] [facility] [id number] Malcom Holguin MD LAB - CHEMISTRY ORDERABLES [facility] INSURANCE BILL [address] [place] [address] from Last 3 Months or Most Recently Relevant to Health Maintenance Care Teams Speedometer Mechanic Relationship Specialty Start Date End Date Hebert Rebollar DO PCP - General 05/16/16
--- OUTSIDE RECORDS SUMMARY | 2024-04-22 16:38 | XMS_ITS | Patient Health Summary ---
Author Organization [facility] Address [address] [place] [address] Care Team Providers Care Motion Picture Director Name Role Phone Hebert Rebollar DO Primary Care Provider [phone] Note from [facility],non-owned Affiliates and Associated Physician Practices is amultiple site organization consisting of ambulatory clinics and hospital sitesin [place], [place], [place] and [place]. This disclosure is being madepursuant to the Care Everywhere program and may not contain all information available regarding this patient. Last updated 17.[facility] Allergies * Azithromycin(Skin Reactions) -Medium Criticality * Naproxen(Swelling) -Low Criticality * Sumatriptan(Other) Medications * Be aware that medications may not be up to date on this document. Alwaysverify current medications with the patient. * albuterol HFA (PROVENTIL;VENTOLIN;PROAIR) 108 (90 Base) MCG/ACT inhaler Inhale 2 (two) puffs by mouth every 6 hours as needed * albuterol (PROVENTIL;VENTOLIN) (2.5 MG/3ML) 0.083% nebulizer solution Inhale by mouth 4 times daily as needed for Shortness of Breath or Wheezing * amLODIPine (Norvasc) 10 MG tablet(Started 09/13/2021) Take 1 (one) tablet by mouth once daily * CPAP Use as directed * gabapentin (Neurontin) 300 MG capsule(Started 03/06/2023) Take 1 (one) capsule by mouth 3 times daily 1 refill by 03/05/2024 * Galcanezumab-gnlm (Emgality) 120 MG/ML auto-injector pen(Started 03/07/2023) 2 injection (240 mg) first month [loading dose] followed by 1 injection (120 mg) monthly. 5 refills by 03/06/2024 * ogcdpzugkq-lvkccvrozcahp-fivfgyfx (Fioricet) 50-325-40 MG tablet(Started 06/14/2023) Take 1 (one) tablet by mouth every 6 hours as needed for Headache (No additional Tylenol or acetaminophen with this medication.) 1 refill by 12/11/2023 * xerc-tckk-olvmegqyof-codeine (Fioricet With Codeine) 28-216-75-30 MG capsule (Started 06/27/2023) TAKE 1 CAPSULE BY MOUTH EVERY 6 HOURS NEEDED FOR HEADACHE. NO ADDITIONAL TYLENOL OR ACETAMINPHENWITH THIS MEDICATION 5 refills by 12/24/2023 * mupirocin (Bactroban) 2 % ointment(Started 06/30/2023) APPLY TOPICALLY TWICE DAILY * ALPRAZolam (Xanax) 1 MG tablet(Started 08/06/2023) Take 1 (one) tablet by mouth once daily as needed for Anxiety * zonisamide (Zonegran) 100 MG capsule(Started 01/31/2024) TAKE 4 CAPSULES ONE TIME DAILY 3 refills by 01/30/2025 Active Problems Problem Noted Date Diagnosed Date Intractable migraine without aura and without status migrainosus 10/03/2017 Bilateral occipital neuralgia 10/03/2017 Seizures 12/11/2016 Social History Tobacco Use Types Packs/Day Years [...] 36.5 C (97.7 F) 01/25/2022 8:48 AM SCREWMAKER AUTOMATIC Respiratory Rate 18 12/27/2016 8:08 AM SCREWMAKER AUTOMATIC Oxygen Saturation 99% 07/16/2023 1:46 PM CDT Inhaled Oxygen Concentration - - Weight 109.8 kg (242 lb) 07/16/2023 1:46 PM CDT Height 154.9 cm (5' 1 ) 07/16/2023 1:46 PM CDT Body Mass Index 45.73 07/16/2023 1:46 PM CDT Procedures * LAB RESULTS ORDER(Performed 11/13/2018) * LAB RESULTS ORDER(Performed 11/12/2018) * ZONISAMIDE LEVEL(Performed 11/11/2018) * TSH(Performed 11/11/2018) * T4 FREE(Performed 11/11/2018) * COMPREHENSIVE METABOLIC PANEL(Performed 11/11/2018) * CBC W AUTO DIFFERENTIAL(Performed 11/11/2018) * CBC W AUTO DIFFERENTIAL(Performed 12/25/2016) * BASIC METABOLIC PANEL (CALCIUM TOTAL)(Performed 12/25/2016) * CBC W AUTO DIFFERENTIAL(Performed 12/25/2016) * MRI BRAIN WWO CONTRAST(Performed 08/01/2016) * CREATININE BLOOD - POCT (IP) [facility](Performed 08/01/2016) Results * LAB RESULTS ORDER (11/13/2018 9:47 AM CDT) Only the most recent of2 resultswithin the time period is included. Narrative 11/13/2018 9:47 AM CDT Ordered by an unspecified provider. Scanned Document LAB - THERAPEUTIC DR MASSIMO MONITORING ORDERABLES * (ABNORMAL) ZONISAMIDE LEVEL (11/11/2018 8:24 AM CDT) Zonisamide 40.6(H) 10.0 - 40.0 ug/mL [facility] INSURANCE BILL Comment: This test was developed and its performance characteristics determined by [facility]. It has not been cleared or approved by the Food and Drug Administration. Detection Limit = 1.0 FASTING 11/11/2018 8:24 AM CDT 11/11/2018 Narrative Resulting Agency Comment Lab Testing performed at: [facility] [place] [id number] Malcom Holguin MD LAB - CHEMISTRY ORDERABLES [facility] INSURANCE BILL [address] [place] [address] * CBC WITH DIFFERENTIAL (11/11/2018 8:24 AM CDT) Only the most recent of3 resultswithin the time period is included. WBC 6.7 3.4 - 10.8 x10E3/uL [facility] INSURANCE BILL RBC 4.58 3.77 - 5.28 x10E6/uL [facility] INSURANCE BILL Hemoglobin 13.8 11.1 - 15.9 g/dL [facility] INSURANCE BILL Hematocrit 40.0 34.0 - 46.6 % [facility] INSURANCE BILL MCV 87 79 - 97 fL [facility] INSURANCE BILL MCH 30.1 26.6 - 33.0 pg [facility] INSURANCE BILL MCHC 34.5 31.5 - 35.7 g/dL [facility] INSURANCE BILL RDW 13.7 12.3 - 15.4 % [facility] INSURANCE BILL Platelet Count 344 150 - 450 x10E3/uL [facility] INSURANCE BILL Granulocytes % 54 Not Estab. % [facility] INSURANCE BILL Lymphocytes % 37 Not Estab. % [facility] INSURANCE BILL Monocytes % 7 Not Estab. % [facility] INSURANCE BILL Eosinophils % 2 Not Estab. % [facility] INSURANCE BILL Basophils % 0 Not Estab. % [facility] INSURANCE BILL Immature Cells NOT NEEDED [facility] INSURANCE BILL Comment:Ancillary determined the test is not needed. Granulocytes Absolute 3.6 1.4 - 7.0 x10E3/uL [facility] INSURANCE BILL Lymphocytes Absolute 2.5 0.7 - 3.1 x10E3/uL [facility] INSURANCE BILL Monocytes Absolute 0.4 0.1 - 0.9 x10E3/uL [facility] INSURANCE BILL Eosinophils Absolute 0.1 0.0 - 0.4 x10E3/uL [facility] INSURANCE BILL Basophils Absolute 0.0 0.0 - 0.2 x10E3/uL [facility] INSURANCE BILL Immature Granulocytes 0 Not Estab. % [facility] INSURANCE BILL Immature Granulocytes Absolute 0.0 0.0 - 0.1 x10E3/uL [facility] INSURANCE BILL nRBC NOT NEEDED [facility] INSURANCE BILL Comment:Ancillary determined the test is not needed. Comment Hematology NOT NEEDED [facility] INSURANCE BILL Comment: FASTING Ancillary determined the test is not needed. 11/11/2018 8:24 AM CDT 11/11/2018 Narrative Resulting Agency Comment [facility] [address] [facility] [id number] Malcom Holguin MD LAB - HEMATOLOG Y ORDERABLES [facility] INSURANCE BILL [address] [place] [address] * (ABNORMAL) COMPREHENSIVE METABOLIC PANEL (11/11/2018 8:24 [...] Resulting Agency Comment Lab Testing performed at: [facility] [address] [facility] [id number] Malcom Holguin MD LAB - CHEMISTRY ORDERABLES Performing Organization Address [facility] de Phone Number [facility] INSURANCE BILL [address] [place] [address] * TSH (11/11/2018 8:24 AM CDT) Pathologist [facility] TSH 2.050 0.450 - 4.500 uIU/mL [facility] INSURANCE BILL Comment:FASTING 11/11/2018 8:24 AM CDT 11/11/2018 Narrative Resulting Agency Comment Lab Testing performed at: [facility] [id number] Malcom Holguin MD LAB - CHEMISTRY ORDERABLES Performing Organization Address [facility] Number [facility] INSURANCE BILL [address] [place] [address] * T4 FREE (11/11/2018 8:24 AM CDT) Pathologist [facility] T4 Free 1.10 0.82 - 1.77 ng/dL [facility] INSURANCE BILL Comment:FASTING 11/11/2018 8:24 AM CDT 11/11/2018 Narrative Resulting Agency Comment Lab Testing performed at: [address] [id number] Malcom Holguin MD LAB - CHEMISTRY ORDERABLES Performing Organization Address [facility] Phone Number [facility] INSURANCE BILL [address] [place] [address] * (ABNORMAL) BASIC METABOLIC PANEL (CALCIUM TOTAL) (12/25/2016 8:51 AM SCREWMAKER AUTOMATIC) [facility] BUN 12 7 - 26 mg/dL [facility] Creatinine 1.0 0.6 - 1.2 mg/dL [facility] Sodium 139 136 - 145 mmol/L [facility] Potassium 3.8 3.5 - 4.5 mmol/L [facility] Chloride 109(H) 98 - 107 mmol/L [facility] CO2 19(L) 22 - 29 mmol/L [facility] Glucose 96 70 - 115 mg/dL [facility] Calcium 8.7 8.4 - 10.2 mg/dL [facility] Anion Gap 15 8 - 18 [facility] BUN/Creatinine Ratio 12 7 - 23 [facility] Osmolality Calculated 288 270 - 300 mOsm/kg [facility] eGFR >60 >60 mL/min/1.7 3 m2 [facility] Blood specimen (specimen) BLOOD SPECIMEN / Unknown 12/25/2016 8:51 AM SCREWMAKER AUTOMATIC 12/25/2016 9:29 AM SCREWMAKER AUTOMATIC Malcom Holguin MD LAB - CHEMISTRY ORDERABLES Performing Organization Address City/State/[facility] Co de Phone Number [address] [phone] * MRI BRAIN WWO CONTRAST (08/01/2016 4:09 PM CDT) Anatomical Region Laterality Modality Head Other Impressions 08/02/2016 9:14 AM CDT IMPRESSION: 1. 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 This latter finding is nonspecific, but could represent mild hippocampal sclerosis. This report was approved by Abran Freeman M.D. on 08/02/2016 9:08 AM . I, Dr. GARY NAIDU M.D. have personally reviewed and interpreted this examination/study. This report was electronically signed by GARY NAIDU M.D. on 08/02/2016 9:14 AM . Narrative 08/02/2016 9:14 AM CDT EXAMINATION: Magnetic resonance imaging (MRI) of the brain without and with contrast HISTORY: Seizures TECHNIQUE: MRI of the brain was performed prior to and following the uneventful administration of 10 mL Gadavist] intravenous gadolinium contrast according to an epilepsy protocol. This included detailed coronal imaging of the hippocampi and temporal lobes. FINDINGS: No prior study is available for comparison at the time of this dictation. No evidence of acute or chronic hemorrhage is identified. No evidence of acute cerebral infarction is seen. The ventricles are nondilated. No mass effect or midline shift is seen. There is faint enhancement in the right basis pontis most likely representing an incidental capillary telangiectasia. No additional areas of enhancement are identified. 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 The right hippocampus is smaller in size and rotated posteriorly without elevated T2 signal. The corpus callosum and sella appear normal. The posterior fossa, brainstem, and craniocervical junction appear normal. The visualized portions of the orbits, paranasal sinuses, and mastoids appear normal. Normal flow voids are demonstrated in the carotid arteries and basilar artery. The calvarium and visualized cervical spine appear normal. Procedure Note Gary Naidu MD - 05/11/2017 EXAMINATION: Magnetic resonance imaging (MRI) of the brain without andwith contrast HISTORY: Seizures TECHNIQUE: MRI of the brain was performed prior to and following theuneventful administration of 10 mL Gadavist] intravenous gadoliniumcontrast according to an epilepsy protocol. This included detailed coronalimaging of the hippocampi and temporal lobes. FINDINGS: No prior study is available for comparison at the time of thisdictation. No evidence of acute or chronic hemorrhage is identified. No evidence ofacute cerebral infarction is seen. The ventricles are nondilated. No masseffect or midline shift is seen. There is faint enhancement in the rightbasis pontis most likely representing an incidental capillary telangiectasia. No additional areasof enhancement are identified. There is a malformation of corticaldevelopment involving the right occipital and posterior right temporallobes as well as the right parahippocampal gyrus in a pattern representing predominantly polymicrogyria with a smallelement of pachygyria. The right hippocampus is smaller in size androtated posteriorly without elevated T2 signal. The corpus callosum andsella appear normal. The posterior fossa, brainstem, and craniocervical junction appear normal. The visualized portions of the orbits, paranasal sinuses, and mastoidsappear normal. Normal flow voids are demonstrated in the carotid arteriesand basilar artery. The calvarium and visualized cervical spine appearnormal. IMPRESSION IMPRESSION: 1. 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 This latter finding is nonspecific, but couldrepresent mild hippocampal sclerosis. This report was approved by Abran Freeman M.D. on 08/02/2016 9:08 AM . I, Dr. GARY NAIDU M.D. have personally reviewed and interpreted thisexamination/study. This report was electronically signed by GARY NAIDU M.D. on 08/02/20169:14 AM . Malcom Holguin MD MR ORDERABLES * (ABNORMAL) CREATININE BLOOD - POCT (IP) [facility] (08/01/2016) Creatinine POCT 1.45(A) 0.3 - 1.3 mg/dL [facility] eGFR POCT 44(A) 60 ml/min [facility] 08/01/2016 Malcom Holguin MD LAB - POINT OF CARE ORDERABLES [facility] Care Teams Motion Picture Director Relationship Specialty Start Date End Date Hebert Rebollar DO PCP - General 05/16/16
--- OUTSIDE RECORDS SUMMARY | 2024-04-22 16:38 | XMS_ITS | Encounter Summary ---
Author Organization [facility] Address [address] [place] [address] Care Team Providers Care Hard Tile Setter Name Role Phone Hebert Rebollar DO Primary Care Provider [phone] Reason for Visit * Reason Onset Date Comments MEDICATION REFILL 11/19/2020 Encounter Details Date Type Department Care Team (Late Contact Info) Description 11/19/2020 Refill [facility] [address] [place] [address] Jh Woodall MD [address] [place] [phone] MEDICATION REFILL Social History Tobacco Use Types [...] Office Visit [facility] [address] [place] [phone] Yennifer Wade, RESTAURANT KITCHEN AND SERVICE MANAGER-PERSONNEL SCHEDULER [address] [place] [address] documented as of this encounter Visit Diagnoses Diagnosis Migraine without aura and without status migrainosus, not intractable Migraine without aura, without mention of intractable migraine without mention of status migrainosus Bilateral occipital neuralgia Other syndromes affecting cervical region documented in this encounter Care Teams Hard Tile Setter Relationship Specialty Start Date End Date Hebert Rebollar DO PCP - General 05/16/16 documented as of this encounter
--- OUTSIDE RECORDS SUMMARY | 2024-04-22 16:38 | XMS_ITS | Referral Summary ---
Author Organization [facility] [employer] Address [address] [facility] [place] [address] Care Team Providers Care Crop Or Grain Farmer Name Role Phone Hebert Rebollar DO Primary Care Provider [phone]- [phone] Source Comments [facility],non-owned Affiliates and Associated Physician Practices is amultiple site organization consisting of ambulatory clinics and hospital sitesin [place], [place], [place] and [place]. This disclosure is being madepursuant to the Care Everywhere program and may not contain all information available regarding this patient. Last updated 17.[facility] Encounters Date Type Department Care Team Description 01/31/2024 Refill [facility] [address] [place] [address], [facility] [place] [address] Yennifer Wade APRN-LUIS ENRIQUE Refill Request from Last 3 Months Allergies Active Allergy [...] this medication.) 15 tablet 1 06/14/2023 Active bbyo-lpmt-esoiedf cesar-codeine (Fioricet With Codeine) 49-904-03-30 MG capsuleIndication s:Migraine without aura and without [...] 36.5 C (97.7 F) 01/25/2022 8:48 AM AIRCONDITIONING PLANT OPERATOR Respiratory Rate 18 12/27/2016 8:08 AM AIRCONDITIONING PLANT OPERATOR Oxygen Saturation 99% 07/16/2023 1:46 PM CDT Inhaled Oxygen Concentration - - Weight 109.8 kg (242 lb) 07/16/2023 1:46 PM CDT Height 154.9 cm (5' 1 ) 07/16/2023 1:46 PM CDT Body Mass Index 45.73 07/16/2023 1:46 PM CDT Plan of Treatment Upcoming Encounters Date Type Department Care Team (Late st Contact Info) Description 04/24/2024 10:30 AM CDT Office Visit [facility] - Neurology [address] [place] [phone] Yennifer Wade, DIAZ-SENIOR LIVING SALES COUNSELOR [address] [place] [phone] Procedures Procedure Name Priority Date/Time Associated Diagnosis [...] Resulting Agency Comment [facility]: [facility] [address] [facility] [phone] Malcom Holguin MD LAB - CHEMISTRY ORDERABLES [facility] INSURANCE BILL [address] [place] [address] from Last 3 Months or Most Recently Relevant to Health Maintenance Care Teams Crop Or Grain Farmer Relationship Specialty Start Date End Date Hebert Rebollar DO PCP - General 05/16/16
--- OUTSIDE RECORDS SUMMARY | 2024-04-22 16:38 | XMS_ITS | Encounter Summary ---
Author Organization [facility] Healthcare Address [address] [place] [address] Care Team Providers Care Technical Business Analyst Name Role Phone Hebert Rebollar DO Primary Care Provider +1- [phone] Encounter Details Date Type Department Care Team (Late st Contact Info) Description 04/14/2024 [facility] [address] [facility] [address], [place] [address] Jh Woodall MD [address] [facility] [address] [place] [address] Social History Tobacco Use Types Packs/Day Years [...] on file Legal Sex Female 4:21 AM HOME MORTGAGE DISCLOSURE ACT SPECIALIST Gender Identity Not on file Sexual Orientation Not on file documented as of this encounter Plan of Treatment Not on file documented as of this encounter Visit Diagnoses Not on filedocumented in this encounter Care Teams Technical Business Analyst Relationship Specialty Start Date End Date Hebert Rebollar DO PCP - General 05/12/16 documented as of this encounter
--- OUTSIDE RECORDS SUMMARY | 2024-04-22 16:39 | XMS_ITS | Encounter Summary ---
Author Organization [facility] Address [address] [place] [address] Care Team Providers Care Shop Tailor Name Role Phone Hebert Rebollar DO Primary Care Provider [phone] Reason for Visit * Reason Onset Date Comments MEDICATION REFILL 12/15/2019 Encounter Details Date Type Department Care Team (Late Contact Info) Description 12/15/2019 Refill [facility] [address] [place] [address] Jh Woodall MD [address] [place] [phone] MEDICATION REFILL Social History Tobacco Use Types [...] Office Visit [facility] [address] [place] [address], [facility] [place] [phone] Yennifer Wade, DESIGN CHIEF-LAB CLERK [address] [place] [address] documented as of this encounter Visit Diagnoses Diagnosis Migraine without aura and without status migrainosus, not intractable Migraine without aura, without mention of intractable migraine without mention of status migrainosus documented in this encounter Care Teams Shop Tailor Relationship Specialty Start Date End Date Hebert Rebollar DO PCP - General 05/16/16 documented as of this encounter
--- OUTSIDE RECORDS SUMMARY | 2024-04-22 16:39 | XMS_ITS | Encounter Summary ---
Author Organization [facility] Address [address] [facility] [place] [address] Care Team Providers Care Multimedia Coordinator Name Role Phone Hebert Rebollar DO Primary Care Provider Reason for Visit * Reason Onset Date Comments MEDICATION REFILL 12/20/2020 Encounter Details Date Type Department Care Team (Late Contact Info) Description 12/20/2020 Refill [facility] [address] [place] [address] Jh Woodall MD [address] [place] [phone] MEDICATION REFILL Social History Tobacco Use Types [...] Office Visit [facility] [address] [place] [phone] Yennifer Wade, COMMUNITY COORDINATOR FOR HIGH SCHOOL-TRANSFORMER INSPECTOR [address] [place] [address] documented as of this encounter Visit Diagnoses Not on filedocumented in this encounter Care Teams Multimedia Coordinator Relationship Specialty Start Date End Date Hebert Rebollar DO PCP - General 05/16/16 documented as of this encounter
[2024-04-22 19:18] LABS: Basophils Absolute Auto 0.1 K/mm3 (0.0-0.1); Basophils Percent Auto 0.5 % (0.2-1.2); Eosinophils Absolute Auto 0.2 K/mm3 (0-0.3); Eosinophils Percent Auto 1.6 % (0-4.4); Hemoglobin 15.2 g/dL (12.0-15.0); Immature Granulocyte Absolute 0.03 K/mm3 (0.00-0.031); Immature Granulocyte Percent A 0.3 % (0-0.5); Lymphocytes Absolute Auto 3.68 K/mm3 (0.9-3.2); Lymphocytes Percent Auto 38.4 % (18.3-44.2); Mean Corpuscular HGB Conc 35.3 g/dl (32-36); Mean Corpuscular Hemoglobin 30.2 pg (26-34); Mean Corpuscular Volume 85.5 fl (80-100); Mean Platelet Volume 9.6 fl (7.4-10.4); Monocytes Absolute Auto 0.6 K/mm3 (0.1-0.6); Monocytes Percent Auto 5.8 % (2.6-8.5); Neutrophils Absolute Auto 5.1 K/mm3 (1.3-6.7); Neutrophils Percent Auto 53.4 % (45.5-73.1); Platelet Count Result 426 k/mm3 (150-375); Red Blood Count 5.03 M/mm3 (4.2-5.4); Red Cell Distribution Width 13.4 % (11.5-14.5); White Blood Count 9.6 K/mm3 (4.5-10.0)
[2024-04-22 20:47] LABS: Hemoglobin A1C 5.1 % (<5.7)
[2024-04-22 20:57] LABS: Alanine Aminotransferase 26 U/L (6-35); Albumin Level 4.8 g/dL (3.5-5.1); Alkaline Phosphatase 96 U/L (38-126); Anion Gap 15 mmol/L (4-12); Aspartate Amino Transferase 39 U/L (14-36); Bilirubin,Total 0.5 mg/dL (0.2-1.3); Blood Urea Nitrogen 11 mg/dL (7-17); Calcium 9.1 mg/dL (8.4-10.2); Carbon Dioxide 21 mmol/L (22-30); Chloride 99 mmol/L (98-107); Estimated Glomerular Filt Rate 45; Glucose 104 mg/dL (65-110); Potassium 3.2 mmol/L (3.4-5.0); Sodium 135 mmol/L (137-145)
== END 2024-04-22 14:42 | disposition home or self-care (01) ==
LOC: ANHGOSHLAB 14:42
PROVIDERS: PCP Internal Medicine; Visit Provider Internal Medicine
DX: R73.9 Hyperglycemia, unspecified (principal); I10 Essential (primary) hypertension; Z83.3 Family history of diabetes mellitus; E66.01 Morbid (severe) obesity due to excess calories; R94.4 Abnormal results of kidney function studies; L98.9 Disorder of the skin and subcutaneous tissue, unspecified
CPT/HCPCS: 36415; 80053; 82533; 83036; 84443; 85025

== ENCOUNTER 2024-04-23 14:03 | Outpatient (CLI) | payer MEDICARE, MEDICAID, SELFPAY ==
--- OUTSIDE RECORDS SUMMARY | 2024-04-23 15:51 | XMS_ITS | Referral Summary ---
Author Organization [facility] Address [address] [place] [address] Care Team Providers Care Manager Requirements Name Role Phone Hebert Rebollar DO Primary Care Provider [phone]- [phone] Encounters Date Type Department Care Team Description 04/14/2024 Results [facility] [address] [place] [phone] Jh Woodall MD 04/11/2024 11:35 AM WINDOW AND SIDING CRAFTSMAN Lab [address] [address] Bilateral occipital neuralgia; Intractable migraine without aura and without status migrainosus 04/11/2024 11:00 AM WINDOW AND SIDING CRAFTSMAN [facility] [address] [place] [address] Jh Woodall MD Bilateral occipital neuralgia; [...] 6 hours as needed 0 Inhaler 0 02/28/19 17 Active zonisamide (ZONEGRAN) 100 mg capsule TAKE 4 CAPSULES BY MOUTH ONCE DAILY 03/24/19 21 Active amLODIPine (NORVASC) 10 mg tablet Take 1 tablet (10 mg total) by mouth daily Active mupirocin (BACTROBAN) 2 % ointment Apply topically 2 (two) times a day 06/30/19 24 Active gabapentin (NEURONTIN) 300 mg capsuleIndicati ons:Bilateral occipital neuralgia,Intra ctable migraine without aura and without status migrainosus Take 1 capsule (300 mg total) by mouth 3 (three) times a day 270 capsule 3 09/20/19 24 Active galcanezumab-gn lm (Emgality Syringe) 120 mg/mL syringeIndicati ons:Bilateral occipital neuralgia,Intra ctable migraine without aura and without status migrainosus Inject 120 mg under the skin every 30 (thirty) days 1 mL 11 09/20/19 24 Active naloxone (NARCAN) 4 mg/actuation spray,non-aeros olIndications:I ntractable migraine without aura and without status migrainosus Administer 1 spray into affected nostril(s) as needed for opioid reversal or respiratory depression Call 911. Administer a single spray in one nostril. Repeat every 3 minutes as needed if no or minimal response. 1 each 3 09/20/19 24 Active butalbital-acet aminophen-caffe ine-codeine (FIORICET WITH CODEINE) 71-649-59-30 mg per capsuleIndicati ons:Bilateral occipital neuralgia,Intra ctable migraine without aura and without status migrainosus Take 1 capsule by mouth every 6 (six) hours as needed for headaches (No additional Tylenol or acetaminophen with this medication.) 8 capsule 3 03/24/19 25 Active hydroCHLOROthia zide 12.5 mg tablet Take 1 tablet (12.5 mg total) by mouth daily 03/20/19 25 Active candesartan (ATACAND) 4 mg tabletIndicatio ns:Intractable migraine without aura and without status migrainosus Take 1 tablet (4 mg total) by mouth daily 30 tablet 11 04/11/19 25 026 Active ALPRAZolam (XANAX) 1 mg tabletIndicatio ns:Bilateral occipital neuralgia,Intra ctable migraine without aura and without status migrainosus Take 1 tablet (1 mg total) by mouth as needed for anxiety 8 tablet 3 04/11/19 25 Active ALPRAZolam (XANAX) 1 mg tabletIndicatio ns:Bilateral occipital neuralgia,Intra ctable migraine without aura and without status migrainosus Take 1 tablet (1 mg total) by mouth as needed for anxiety 8 tablet 3 09/20/19 24 025 Discontin ued(Reord er) Active Problems Problem Noted Date Diagnosed Date Intractable migraine without aura and without status migrainosus 10/03/2017 Assessment & Plan (04/11/2024 12:02 PM WINDOW AND SIDING CRAFTSMAN): Patient has been doing well on Emgality [...] 12/11/2016 Assessment & Plan (04/11/2024 12:01 PM WINDOW AND SIDING CRAFTSMAN): Continue zonisamide 400 mg daily. Follow up with the epilepsy clinic at [facility]. Social History Tobacco Use Types Packs/Day Years [...] on file Legal Sex Female 4:21 AM WINDOW AND SIDING CRAFTSMAN Gender Identity Not on file Sexual Orientation Not on file Last Filed Vital Signs Vital Sign Reading Time Taken Comments Blood Pressure 132/98 04/11/2024 10:56 AM WINDOW AND SIDING CRAFTSMAN Pulse 89 04/11/2024 10:56 AM WINDOW AND SIDING CRAFTSMAN Temperature 36.3 C (97.3 F) 04/22/2020 9:16 AM WINDOW AND SIDING CRAFTSMAN Respiratory Rate 17 09/20/2023 9:59 AM CDT Oxygen Saturation 99% 04/11/2024 10:56 AM WINDOW AND SIDING CRAFTSMAN Inhaled Oxygen Concentration - - Weight 108.9 kg (240 lb) 04/11/2024 10:56 AM WINDOW AND SIDING CRAFTSMAN Height 154.9 cm (5' 1 ) 04/11/2024 10:56 AM WINDOW AND SIDING CRAFTSMAN Body Mass Index 45.35 04/11/2024 10:56 AM WINDOW AND SIDING CRAFTSMAN Plan of Treatment Not on file Procedures Procedure Name Priority Date/Time Associated Diagnosis Comments EGFR Routine 04/11/2024 11:36 AM WINDOW AND SIDING CRAFTSMAN Bilateral occipital neuralgia Intractable migraine without aura and without status migrainosus DIFFERENTIAL AUTO Routine 04/11/2024 11: 36 AM WINDOW AND SIDING CRAFTSMAN Bilateral occipital neuralgia Intractable migraine without aura and without status migrainosus CBC WITH AUTO DIFFERENTIAL Routine 04/11/2024 11:36 AM WINDOW AND SIDING CRAFTSMAN Bilateral occipital neuralgia Intractable migraine without aura and without status migrainosus COMPREHENSIVE METABOLIC PANEL Routine 04/11/2024 11:36 AM WINDOW AND SIDING CRAFTSMAN Bilateral occipital neuralgia Intractable migraine without aura and without status migrainosus from Last 3 Months Results * eGFR (04/11/2024 11:36 AM WINDOW AND SIDING CRAFTSMAN) eGFR 61 >=60 mL/min/1. 73 m2 Comment: [...] of Race in Diagnosing Kidney Disease, JASN 202). The CKD-EPI equation should not be used for patients with unstable renal function and has not been validated in children and those over 70. Current interpretive data was last reviewed 2020. Blood 04/11/2024 11:3 6 AM WINDOW AND SIDING CRAFTSMAN 04/11/2024 3:22 PM WINDOW AND SIDING CRAFTSMAN Jh Woodall MD LAB BLOOD ORDERABLES Dalia jaeger Result [facility] [address] [place] [address] * Differential, auto (04/11/2024 11:36 AM WINDOW AND SIDING CRAFTSMAN) Neutrophil abs 3.7 1.5 - 6.5 K/cumm Imm gran abs 0.0 0.0 - 0.1 K/cumm [facility] Lymphocyte abs 2.6 0.8 - 3.3 K/cumm [facility] Monocyte abs 0.6 0.2 - 0.8 K/cumm [facility] Eosinophil abs 0.3 0.0 - 0.5 K/cumm [facility] Basophil abs 0.0 0.0 - 0.1 K/cumm [facility] Neutrophil pct 50.8 % [facility] Comment: Interpretive Data Percent cell count reference ranges are not reported, since discordance with absolute values may lead to misinterpretation of CBC data. Current Interpretive Data was last revised on 2017. Imm gran pct 0.4 % [facility] Comment: Interpretive Data Percent cell count reference ranges are not reported, since discordance with absolute values may lead to misinterpretation of CBC data. Current Interpretive Data was last revised on 2017. Lymphocyte pct 36.2 % [facility] Comment: Interpretive Data Percent cell count reference ranges are not reported, since discordance with absolute values may lead to misinterpretation of CBC data. Current Interpretive Data was last revised on 2017. Monocyte pct 8.5 % [facility] Comment: Interpretive Data Percent cell count reference ranges are not reported, since discordance with absolute values may lead to misinterpretation of CBC data. Current Interpretive Data was last revised on 2017. Eosinophil pct 3.6 % [facility] Comment: Interpretive Data Percent cell count reference ranges are not reported, since discordance with absolute values may lead to misinterpretation of CBC data. Current Interpretive Data was last revised on 2017. Basophil pct 0.5 % [facility] Comment: Interpretive Data Percent cell count reference ranges are not reported, since discordance with absolute values may lead to misinterpretation of CBC data. Current Interpretive Data was last revised on 2017. Blood 04/11/2024 11:3 6 AM WINDOW AND SIDING CRAFTSMAN 04/11/2024 3:22 PM WINDOW AND SIDING CRAFTSMAN us Jh Woodall MD LAB BLOOD ORDERABLES Dalia l Result [facility] [address] Department of Laboratories [place], [place] [id number] * CBC with auto differential (04/11/2024 11:36 AM WINDOW AND SIDING CRAFTSMAN) WBC 7.3 3.8 - 9.9 K/cumm Hgb 14.2 11.9 - 15.5 g/dL [facility] Hct 41.3 35.6 - 45.5 % [facility] Plt 363 150 - 400 K/cumm [facility] MPV 9.6 9.1 - 12.3 fL [facility] RBC 4.70 3.90 - 5.20 M/cumm [facility] MCV 87.9 81.3 - 96.4 fL [facility] MCH 30.2 27.1 - 33.3 pg [facility] MCHC 34.4 32.3 - 35.7 g/dL [facility] RDW CV 13.7 11.1 - 14.9 % [facility] RDW SD 44.1 35.7 - 48.1 fL [facility] NRBC abs 0.00 0.00 - 0.01 K/cumm [facility] Blood 04/11/2024 11:3 6 AM WINDOW AND SIDING CRAFTSMAN 04/11/2024 3:22 PM WINDOW AND SIDING CRAFTSMAN us Jh Woodall MD LAB BLOOD ORDERABLES Dalia jaeger Result [facility] [address] [place] [address] * (ABNORMAL) Comprehensive metabolic panel (04/11/2024 11:36 AM WINDOW AND SIDING CRAFTSMAN) Sodium 139 135 - 145 mmol/L Potassium, pl 3.4 3.3 - 4.9 mmol/L [facility] Chloride 103 97 - 110 mmol/L [facility] CO2 19(L) 22 - 32 mmol/L [facility] Anion gap 17(H) 2 - 15 mmol/L [facility] BUN 19 6 - 25 mg/dL [facility] Creatinine 1.16(H) 0.60 - 1.10 mg/dL [facility] Glucose 104 70 - 199 mg/dL [facility] Comment: Interpretive Data Fasting glucose >/= 126 [...] classification and Diagnosis of Diabetes Diabetes Care 2021; 46: S19-S40. Current interpretive data was last revised 2022. Calcium 9.4 8.5 - 10.3 mg/dL [facility] Bilirubin, total 0.2 0.1 - 1.2 mg/dL [facility] Protein, pl 7.6 6.5 - 8.5 g/dL [facility] Albumin 4.4 3.5 - 5.0 g/dL [facility] Alk phos 93 40 - 130 Units/L [facility] ALT 19 7 - 45 Units/L [facility] AST 18 10 - 45 Units/L [facility] Blood 04/11/2024 11:3 6 AM WINDOW AND SIDING CRAFTSMAN 04/11/2024 3:22 PM WINDOW AND SIDING CRAFTSMAN us Jh Woodall MD LAB BLOOD ORDERABLES Dalia jaeger Result [facility] [address] [place] [address] from Last 3 Months Insurance [employer]WA IDWA [facility] MEDICARE HMO Care Teams Manager Requirements Relationship Specialty Start Date End Date Hebert Rebollar DO PCP - General 05/12/16
--- OUTSIDE RECORDS SUMMARY | 2024-04-23 15:51 | XMS_ITS | Referral Summary ---
Author Organization [facility] [employer] Address [address] [facility] [address] Care Team Providers Care Grades 1 Through 5 Teacher Name Role Phone Hebert Rebollar DO Primary Care Provider [phone] Source Comments [facility],non-owned Affiliates and Associated Physician Practices is amultiple site organization consisting of ambulatory clinics and hospital sitesin [place], [place], [place] and [place]. This disclosure is being madepursuant to the Care Everywhere program and may not contain all information available regarding this patient. Last updated 17.[facility] Encounters Date Type Department Care Team Description 01/31/2024 Refill [facility] [address] [place] [address], [facility] [place] [address] Yennifer Wade APRN-LUIS ENRIQUE Refill Request from [...] this medication.) 15 tablet 1 06/14/2023 Active hxcd-vccu-hrmeajd cesar-codeine (Fioricet With Codeine) 94-484-89-30 MG capsuleIndication s:Migraine without aura and without [...] 36.5 C (97.7 F) 01/25/2022 8:48 AM SENIOR BUSINESS DEVELOPMENT ANALYST Respiratory Rate 18 12/27/2016 8:08 AM SENIOR BUSINESS DEVELOPMENT ANALYST Oxygen Saturation 99% 07/16/2023 1:46 PM CDT Inhaled Oxygen Concentration - - Weight 109.8 kg (242 lb) 07/16/2023 1:46 PM CDT Height 154.9 cm (5' 1 ) 07/16/2023 1:46 PM CDT Body Mass Index 45.73 07/16/2023 1:46 PM CDT Plan of Treatment Upcoming Encounters Date Type Department Care Team (Late st Contact Info) Description 05/01/2024 4:00 PM CDT Video Visit [facility] - Neurology [address] [place] [phone] Yennifer Wade, DIAZ-DROP COUNT ASSOCIATE [address] [place] [phone] Procedures Procedure Name Priority Date/Time Associated Diagnosis [...] Resulting Agency Comment [facility]: [facility] [address] [facility] [id number] Malcom Holguin MD LAB - CHEMISTRY ORDERABLES [facility] INSURANCE BILL [address] [place] [address] from Last 3 Months or Most Recently Relevant to Health Maintenance Care Teams Grades 1 Through 5 Teacher Relationship Specialty Start Date End Date Hebert Rebollar DO PCP - General 05/16/16
--- OUTSIDE RECORDS SUMMARY | 2024-04-23 15:51 | XMS_ITS | Encounter Summary ---
Author Organization [facility] Address [address] [facility] [place] [address] Care Team Providers Care Assistant Professor Of Psychology Name Role Phone Hebert Rebollar DO Primary Care Provider [phone] Reason for Visit * Reason Onset Date Comments MEDICATION REFILL 11/19/2020 Encounter Details Date Type Department Care Team (Late Contact Info) Description 11/19/2020 Refill [facility] [address] [place] [address] Jh Woodall MD [address] [place] [phone] MEDICATION REFILL Social History Tobacco Use Types [...] Department Care Team (Late Contact Info) Description 05/01/2024 4:00 PM CDT Video Visit [facility] [address] [place] [phone] Yennifer Wade, LEAD HANDLER-CUTTING AND CREASING PRESS OPERATOR [address] [place] [address] documented as of this encounter Visit Diagnoses Diagnosis Migraine without aura and without status migrainosus, not intractable Migraine without aura, without mention of intractable migraine without mention of status migrainosus Bilateral occipital neuralgia Other syndromes affecting cervical region documented in this encounter Care Teams Assistant Professor Of Psychology Relationship Specialty Start Date End Date Hebert Rebollar DO PCP - General 05/16/16 documented as of this encounter
--- OUTSIDE RECORDS SUMMARY | 2024-04-23 15:51 | XMS_ITS | Encounter Summary ---
Author Organization [facility] Address [address] [facility] [place] [address] Care Team Providers Care Cable Installer Repairer Helper Name Role Phone Hebert Rebollar DO Primary Care Provider Reason for Visit * Reason Onset Date Comments MEDICATION REFILL 07/24/2022 Encounter Details Date Type Department Care Team (Late st Contact Info) Description 07/24/2022 Refill [facility] [address] [place] [address], [place] [address] Jh Woodall MD [address] [place] [phone] MEDICATION REFILL Social History Tobacco Use [...] Description 05/01/2024 4:00 PM CDT Video Visit [facility] [address] [place] [phone] Yennifer Wade APRN-ASSISTANT CENTER MANAGER [address] [place] [phone] documented as of this encounter Visit Diagnoses Not on filedocumented in this encounter Care Teams Cable Installer Repairer Helper Relationship Specialty Start Date End Date Hebert Rebollar DO PCP - General 05/16/16 documented as of this encounter
--- OUTSIDE RECORDS SUMMARY | 2024-04-23 15:51 | XMS_ITS | Encounter Summary ---
Author Organization [facility] Healthcare Address [address] [place] [address] Care Team Providers Care Bus Van Driver Name Role Phone Hebert Rebollar DO Primary Care Provider [phone]- [phone] Encounter Details Date Type Department Care Team (Late st Contact Info) Description 04/14/2024 [facility] [address] [facility] [address], [place] [address] Jh Woodall MD [address] [facility] [address] [place] [address] Social History Tobacco Use Types Packs/Day Years [...] on file Legal Sex Female 4:21 AM ROCK CLIMBING TEAM MEMBER Gender Identity Not on file Sexual Orientation Not on file documented as of this encounter Plan of Treatment Not on file documented as of this encounter Visit Diagnoses Not on filedocumented in this encounter Care Teams Bus Van Driver Relationship Specialty Start Date End Date Hebert Rebollar DO PCP - General 05/12/16 documented as of this encounter
--- OUTSIDE RECORDS SUMMARY | 2024-04-23 15:51 | XMS_ITS | Encounter Summary ---
Author Organization [facility] Address [address] [facility] [place] [address] Care Team Providers Care Dental Coordinator Name Role Phone Hebert Rebollar DO Primary Care Provider [phone] Reason for Visit * Reason Onset Date Comments MEDICATION REFILL 12/20/2020 Encounter Details Date Type Department Care Team (Late Contact Info) Description 12/20/2020 Refill [facility] [address] [place] [address] Jh Woodall MD [address] [place] [phone] MEDICATION REFILL Social History Tobacco Use Types [...] Video Visit [facility] [address] [place] [phone] Yennifer Wade, MOBILE QA TESTER-ANTENNA MACHINE OPERATOR [address] [place] [address] documented as of this encounter Visit Diagnoses Not on filedocumented in this encounter Care Teams Dental Coordinator Relationship Specialty Start Date End Date Hebert Rebollar DO PCP - General 05/16/16 documented as of this encounter
--- OUTSIDE RECORDS SUMMARY | 2024-04-23 15:51 | XMS_ITS | Encounter Summary ---
Author Organization [facility] Address [address] [facility] [place] [address] Care Team Providers Care Grass Farm Laborer Name Role Phone Hebert Rebollar DO Primary Care Provider +1- [phone] Reason for Visit * Reason Onset Date Comments MEDICATION REFILL 06/16/2020 Encounter Details Date Type Department Care Team (Late Contact Info) Description 06/16/2020 Refill [facility] [address] [place] [address] Jh Woodall MD [address] [place] [phone] MEDICATION REFILL Social History Tobacco Use Types [...] Video Visit [facility] [address] [place] [phone] Yennifer Wade, EXTRACTOR OPERATOR SOLVENT PROCESS-RN EMERGENCY ROOM [address] [place] [address] documented as of this encounter Visit Diagnoses Diagnosis Migraine without aura and without status migrainosus, not intractable Migraine without aura, without mention of intractable migraine without mention of status migrainosus documented in this encounter Care Teams Grass Farm Laborer Relationship Specialty Start Date End Date Hebert Rebollar DO PCP - General 05/16/16 documented as of this encounter
--- OUTSIDE RECORDS SUMMARY | 2024-04-23 15:51 | XMS_ITS | Clinical Summary ---
Author Organization [facility] Address [address] [place] [address] Care Team Providers Care Medical Policy Specialist Name Role Phone Hebert Rebollar DO Primary Care Provider +1- [phone] Allergies Active Allergy Reactions Criticality Noted Date [...] Active butalbital-acet aminophen-caffe ine-codeine (FIORICET WITH CODEINE) 60-119-34-30 mg per capsuleIndicati ons:Bilateral occipital neuralgia,Intra ctable [...] 10/03/2017 Assessment & Plan (04/11/2024 12:02 PM HAND STONE POLISHER): Patient has been doing well on Emgality [...] 12/11/2016 Assessment & Plan (04/11/2024 12:01 PM HAND STONE POLISHER): Continue zonisamide 400 mg daily. Follow up with the epilepsy clinic at [facility]. Encounters Date Type Department Care Team Description 04/14/2024 Results [facility] [address] [place] [phone] Jh Woodall MD 04/11/2024 11:35 AM HAND STONE POLISHER Lab [address] [place] [phone] Bilateral occipital neuralgia; Intractable migraine without aura and without status migrainosus 04/11/2024 11:00 AM HAND STONE POLISHER [facility] [address] [place] [phone] Jh Woodall MD Bilateral occipital neuralgia; Intractable [...] on file Legal Sex Female 4:21 AM HAND STONE POLISHER Gender Identity Not on file Sexual Orientation Not on file Obstetrics History Last Filed Vital Signs Vital Sign Reading Time Taken Comments Blood Pressure 132/98 04/11/2024 10:56 AM HAND STONE POLISHER Pulse 89 04/11/2024 10:56 AM HAND STONE POLISHER Temperature 36.3 C (97.3 F) 04/22/2020 9:16 AM HAND STONE POLISHER Respiratory Rate 17 09/20/2023 9:59 AM CDT Oxygen Saturation 99% 04/11/2024 10:56 AM HAND STONE POLISHER Inhaled Oxygen Concentration - - Weight 108.9 kg (240 lb) 04/11/2024 10:56 AM HAND STONE POLISHER Height 154.9 cm (5' 1 ) 04/11/2024 10:56 AM HAND STONE POLISHER Body Mass Index 45.35 04/11/2024 10:56 AM HAND STONE POLISHER Plan of Treatment Health Maintenance Due Date [...] Diagnosis Comments EGFR Routine 04/11/2024 11:36 AM HAND STONE POLISHER Bilateral occipital neuralgia Intractable migraine without aura and without status migrainosus DIFFERENTIAL AUTO Routine 04/11/2024 11: 36 AM HAND STONE POLISHER Bilateral occipital neuralgia Intractable migraine without aura and without status migrainosus CBC WITH AUTO DIFFERENTIAL Routine 04/11/2024 11:36 AM HAND STONE POLISHER Bilateral occipital neuralgia Intractable migraine without aura and without status migrainosus COMPREHENSIVE METABOLIC PANEL Routine 04/11/2024 11:36 AM HAND STONE POLISHER Bilateral occipital neuralgia Intractable migraine without aura and without status migrainosus from Last 3 Months Results * eGFR (04/11/2024 11:36 AM HAND STONE POLISHER) [facility] Signature eGFR 61 >=60 mL/min/1. 73 m2 Comment: [...] reviewed 2020. Blood 04/11/2024 11:3 6 AM HAND STONE POLISHER 04/11/2024 3:22 PM HAND STONE POLISHER us Jh Woodall MD LAB BLOOD ORDERABLES Dalia jaeger Result [facility] [address] Department [place] [address] * Differential, auto (04/11/2024 11:36 AM HAND STONE POLISHER) Neutrophil abs 3.7 1.5 - 6.5 K/cumm Imm gran abs 0.0 0.0 - 0.1 K/cumm [facility] Lymphocyte abs 2.6 0.8 - 3.3 K/cumm [facility] Monocyte abs 0.6 0.2 - 0.8 K/cumm [facility] Eosinophil abs 0.3 0.0 - 0.5 K/cumm [facility] Basophil abs 0.0 0.0 - 0.1 K/cumm [facility] Neutrophil pct 50.8 % [facility] Comment: Interpretive Data Percent cell count reference ranges are not reported, since discordance with absolute values may lead to misinterpretation of CBC data. Current Interpretive Data was last revised on 2017. Imm gran pct 0.4 % [facility] Comment: Interpretive Data Percent cell count reference ranges are not reported, since discordance with absolute values may lead to misinterpretation of CBC data. Current Interpretive Data was last revised on 2017. Lymphocyte pct 36.2 % [facility] Comment: Interpretive Data Percent cell count reference ranges are not reported, since discordance with absolute values may lead to misinterpretation of CBC data. Current Interpretive Data was last revised on 2017. Monocyte pct 8.5 % [facility] Comment: Interpretive Data Percent cell count reference ranges are not reported, since discordance with absolute values may lead to misinterpretation of CBC data. Current Interpretive Data was last revised on 2017. Eosinophil pct 3.6 % [facility] Comment: Interpretive Data Percent cell count reference ranges are not reported, since discordance with absolute values may lead to misinterpretation of CBC data. Current Interpretive Data was last revised on 2017. Basophil pct 0.5 % [facility] Comment: Interpretive Data Percent cell count reference ranges are not reported, since discordance with absolute values may lead to misinterpretation of CBC data. Current Interpretive Data was last revised on 2017. Blood 04/11/2024 11:3 6 AM HAND STONE POLISHER 04/11/2024 3:22 PM HAND STONE POLISHER Jh Woodall MD LAB BLOOD ORDERABLES Dalia jaeger Result [facility] [address] Department [place] [address] * CBC with auto differential (04/11/2024 11:36 AM HAND STONE POLISHER) WBC 7.3 3.8 - 9.9 K/cumm Hgb 14.2 11.9 - 15.5 g/dL [facility] Hct 41.3 35.6 - 45.5 % [facility] Plt 363 150 - 400 K/cumm [facility] MPV 9.6 9.1 - 12.3 fL [facility] RBC 4.70 3.90 - 5.20 M/cumm [facility] MCV 87.9 81.3 - 96.4 fL [facility] MCH 30.2 27.1 - 33.3 pg [facility] MCHC 34.4 32.3 - 35.7 g/dL [facility] RDW CV 13.7 11.1 - 14.9 % [facility] RDW SD 44.1 35.7 - 48.1 fL [facility] NRBC abs 0.00 0.00 - 0.01 K/cumm [facility] Blood 04/11/2024 11:3 6 AM HAND STONE POLISHER 04/11/2024 3:22 PM HAND STONE POLISHER Jh Woodall MD LAB BLOOD ORDERABLES Dalia mil Result [facility] [address] Department [place] [address] * (ABNORMAL) Comprehensive metabolic panel (04/11/2024 11:36 AM HAND STONE POLISHER) Sodium 139 135 - 145 mmol/L Potassium, pl 3.4 3.3 - 4.9 mmol/L [facility] Chloride 103 97 - 110 mmol/L [facility] CO2 19(L) 22 - 32 mmol/L [facility] Anion gap 17(H) 2 - 15 mmol/L [facility] BUN 19 6 - 25 mg/dL [facility] Creatinine 1.16(H) 0.60 - 1.10 mg/dL [facility] Glucose 104 70 - 199 mg/dL [facility] Comment: Interpretive Data Fasting glucose >/= 126 [...] 2022. Calcium 9.4 8.5 - 10.3 mg/dL [facility] Bilirubin, total 0.2 0.1 - 1.2 mg/dL [facility] Protein, pl 7.6 6.5 - 8.5 g/dL [facility] Albumin 4.4 3.5 - 5.0 g/dL [facility] Alk phos 93 40 - 130 Units/L [facility] ALT 19 7 - 45 Units/L [facility] AST 18 10 - 45 Units/L [facility] Blood 04/11/2024 11:3 6 AM HAND STONE POLISHER 04/11/2024 3:22 PM HAND STONE POLISHER Jh Woodall MD LAB BLOOD ORDERABLES Dalia jaeger Result [facility] [address] Department [place] [address] from Last 3 Months Insurance [facility] [employer] MEDIC[employer] HMO Care Teams Medical Policy Specialist Relationship Specialty Start Date End Date Hebert Rebollar DO [facility] - General 05/12/16
--- OUTSIDE RECORDS SUMMARY | 2024-04-23 15:51 | XMS_ITS | Encounter Summary ---
Author Organization [facility] Address [address] [facility] [place] [address] Care Team Providers Care Equipment Operation Instructor Name Role Phone Hebert Rebollar DO Primary Care Provider +1- [phone] Reason for Visit * Reason Onset Date Comments MEDICATION REFILL 12/19/2020 Encounter Details Date Type Department Care Team (Late st Contact Info) Description 12/19/2020 Refill [facility] [address] [place] [address] Jh Woodall MD [address] [place] [phone] MEDICATION REFILL Social History Tobacco Use Types [...] 12/20/2020 8:17 AM CST Last OV 07-02-20 T MONITOR documented in this encounter Plan of Treatment Upcoming Encounters Date Type Department Care Team (Late st Contact Info) Description 05/01/2024 4:00 PM CDT Video Visit [facility] [address] [facility] [place] [phone] Yennifer Wade APRN-MARBLE INSTALLER [address] [place] [phone] documented as of this encounter Visit Diagnoses Not on filedocumented in this encounter Care Teams Equipment Operation Instructor Relationship Specialty Start Date End Date Hebert Rebollar DO PCP - General 05/16/16 documented as of this encounter
--- OUTSIDE RECORDS SUMMARY | 2024-04-23 15:51 | XMS_ITS | Encounter Summary ---
Author Organization [facility] Address [address] [facility] [place] [address] Care Team Providers Care Circulating Process Inspector Name Role Phone Hebert Rebollar DO Primary Care Provider Reason for Visit * Reason Onset Date Comments MEDICATION REFILL 12/15/2019 Encounter Details Date Type Department Care Team (Late Contact Info) Description 12/15/2019 Refill [facility] [address] [place] [address] Jh Woodall MD [address] [place] [phone] MEDICATION REFILL Social History Tobacco Use Types [...] Video Visit [facility] [address] [place] [address], [place] [phone] Yennifer Wade, TAR DISTILLATION SUPERVISOR-BUSINESS SERVICES REPRESENTATIVE [address] [place] [address] documented as of this encounter Visit Diagnoses Diagnosis Migraine without aura and without status migrainosus, not intractable Migraine without aura, without mention of intractable migraine without mention of status migrainosus documented in this encounter Care Teams Circulating Process Inspector Relationship Specialty Start Date End Date Hebert Rebollar DO PCP - General 05/16/16 documented as of this encounter
--- OUTSIDE RECORDS SUMMARY | 2024-04-23 15:51 | XMS_ITS | Patient Health Summary ---
Author Organization [facility] Address [address] [place] [address] Care Team Providers Care Animal Husbandry Professor Name Role Phone Hebert Rebollar DO Primary Care Provider [phone] Note from [facility],non-owned Affiliates and Associated Physician Practices is amultiple site organization consisting of ambulatory clinics and hospital sitesin [place], [place], [place] and [place]. This disclosure is being madepursuant to the Care Everywhere program and may not contain all information available regarding this patient. Last updated 17.[facility] Allergies * Azithromycin(Skin Reactions) -Medium Criticality * [...] mg) monthly. 5 refills by 03/06/2024 * mzdewomnnw-olopyqppcmjji-mrkgbulc (Fioricet) 50-325-40 MG tablet(Started 06/14/2023) Take 1 (one) tablet by mouth every 6 hours as needed for Headache (No additional Tylenol or acetaminophen with this medication.) 1 refill by 12/11/2023 * dahb-xzvu-kcmquwualr-codeine (Fioricet With Codeine) 97-555-24-30 MG capsule (Started 06/27/2023) TAKE 1 CAPSULE [...] 36.5 C (97.7 F) 01/25/2022 8:48 AM SEO MANAGER Respiratory Rate 18 12/27/2016 8:08 AM SEO MANAGER Oxygen Saturation 99% 07/16/2023 1:46 PM CDT [...] CDT) Zonisamide 40.6(H) 10.0 - 40.0 ug/mL [facility] INSURANCE BILL Comment: This test was developed and its performance characteristics determined by [facility]. It has not been cleared or approved by the Food and Drug Administration. Detection Limit = 1.0 FASTING 11/11/2018 8:24 AM CDT 11/11/2018 Narrative Resulting Agency Comment Lab Testing performed at: [facility] [place] [id number] Malcom Holguin MD LAB - CHEMISTRY ORDERABLES [facility] INSURANCE BILL [address] [place] [address] * CBC WITH DIFFERENTIAL (11/11/2018 8:24 AM [...] Resulting Agency Comment [facility]: [facility] [address] [facility] [id number] Malcom Holguin MD LAB - HEMATOLOG Y ORDERABLES [facility] INSURANCE BILL [address] [place] [address] * (ABNORMAL) COMPREHENSIVE METABOLIC PANEL (11/11/2018 8:24 [...] Resulting Agency Comment Lab [facility] performed at: [facility] [address] [facility] [id number] Malcom Holguin MD LAB - CHEMISTRY ORDERABLES Performing Organization Address [facility] de Phone Number [facility] INSURANCE BILL [address] [place] [address] * TSH (11/11/2018 8:24 AM CDT) Pathologist [facility] TSH 2.050 0.450 - 4.500 uIU/mL [facility] INSURANCE BILL Comment:FASTING 11/11/2018 8:24 AM CDT 11/11/2018 Narrative Resulting Agency Comment Lab Testing performed at: [facility] [id number] Malcom Holguin MD LAB - CHEMISTRY ORDERABLES Performing Organization Address [facility] Number [facility] INSURANCE BILL [address] [place] [address] * T4 FREE (11/11/2018 8:24 AM CDT) Pathologist [facility] T4 Free 1.10 0.82 - 1.77 ng/dL [facility] INSURANCE BILL Comment:FASTING 11/11/2018 8:24 AM CDT 11/11/2018 Narrative Resulting Agency Comment Lab Testing performed at: [address] [id number] Malcom Holguin MD LAB - CHEMISTRY ORDERABLES Performing Organization Address [facility] Phone Number [facility] INSURANCE BILL [address] [place] [address] * (ABNORMAL) BASIC METABOLIC PANEL (CALCIUM TOTAL) (12/25/2016 8:51 AM SEO MANAGER) [facility] BUN 12 7 - 26 mg/dL [facility] Creatinine 1.0 0.6 - 1.2 mg/dL [facility] Sodium 139 136 - 145 mmol/L [facility] Potassium 3.8 3.5 - 4.5 mmol/L [facility] Chloride 109(H) 98 - 107 mmol/L [facility] CO2 19(L) 22 - 29 mmol/L [facility] Glucose 96 70 - 115 mg/dL [facility] Calcium 8.7 8.4 - 10.2 mg/dL [facility] Anion Gap 15 8 - 18 [facility] BUN/Creatinine Ratio 12 7 - 23 [facility] Osmolality Calculated 288 270 - 300 mOsm/kg [facility] eGFR >60 >60 mL/min/1.7 3 m2 [facility] Blood specimen (specimen) BLOOD SPECIMEN / Unknown 12/25/2016 8:51 AM SEO MANAGER 12/25/2016 9:29 AM SEO MANAGER Malcom Holguin MD LAB - CHEMISTRY ORDERABLES Performing Organization Address City/State/[facility] Co de Phone Number [address] [phone] * MRI BRAIN WWO CONTRAST (08/01/2016 4:09 [...] * (ABNORMAL) CREATININE BLOOD - POCT (IP) [facility] (08/01/2016) Creatinine POCT 1.45(A) 0.3 - 1.3 mg/dL [facility] eGFR POCT 44(A) 60 ml/min [facility] 08/01/2016 Malcom Holguin MD LAB - POINT OF CARE ORDERABLES [facility] Care Teams Animal Husbandry Professor Relationship Specialty Start Date End Date Hebert Rebollar DO PCP - General 05/16/16
--- OUTSIDE RECORDS SUMMARY | 2024-04-23 15:51 | XMS_ITS | Clinical Summary ---
Author Organization [facility] Address [address] [facility] [place] [address] Care Team Providers Care Streaming Media Specialist Name Role Phone Hebert Rebollar DO Primary Care Provider +1- [phone] Source Comments [facility],non-owned Affiliates and Associated Physician Practices is amultiple site organization consisting of ambulatory clinics and hospital sitesin [place], [place], [place] and [place]. This disclosure is being madepursuant to the Care Everywhere program and may not contain all information available regarding this patient. Last updated 17.[facility] Allergies Active Allergy Reactions Criticality Noted Date [...] this medication.) 15 tablet 1 06/14/2023 Active lwqm-jqif-irbpvuv cesar-codeine (Fioricet With Codeine) 91-712-64-30 MG capsuleIndication s:Migraine without aura and without [...] 01/31/2024 Refill [facility] [address] [place] [phone] Yennifer Wade APRN-LUIS ENRIQUE Refill Request from [...] 36.5 C (97.7 F) 01/25/2022 8:48 AM SYSTEM DISPATCHER Respiratory Rate 18 12/27/2016 8:08 AM SYSTEM DISPATCHER Oxygen Saturation 99% 07/16/2023 1:46 PM CDT [...] Visit [facility] [address] [place] [phone] Yennifer Wade, DIAZ-SECOND WORKER [address] [place] [address] Health Maintenance Due Date Last Done Comments [...] complete this topic MENINGOCOCCAL (Group B) VACCINE SHARED DECISION-MAKING Aged Out No longer eligible based on patient's age to complete this topic MENINGOCOCCAL GROUPS A/C/Y/W VACCINE Aged Out No longer eligible b [...] Agency Comment Lab Testing performed at: [facility] [address] [facility] [id number] Malcom Holguin MD LAB - CHEMISTRY ORDERABLES [facility] INSURANCE BILL [address] [place] [address] from Last 3 Months or Most Recently Relevant to Health Maintenance Care Teams Streaming Media Specialist Relationship Specialty Start Date End Date Hebert Rebollar DO PCP - General 05/16/16
[2024-04-23 19:01] LABS: Free T4 Free Thyroxine 1.27 ng/dL (0.78-2.19)
[2024-04-23 19:13] LABS: Total Triiodothyronine (T3) 1.85 NG/ML (0.97-1.69)
[2024-04-23 19:29] LABS: Microalbumin Urine Random < 6.0 mg/L (0-16.7)
[2024-04-23 19:30] LABS: MALB Creatinine Ratio < 11.5 mg/g (0-30)
[2024-04-25 00:44] LABS: Insulin Level Total 22.2 uIU/mL
== END 2024-04-23 14:04 | disposition home or self-care (01) ==
LOC: ANHGOSHLAB 14:04
PROVIDERS: PCP Internal Medicine; Visit Provider Internal Medicine
DX: R73.9 Hyperglycemia, unspecified (principal); I10 Essential (primary) hypertension; E66.01 Morbid (severe) obesity due to excess calories; R94.4 Abnormal results of kidney function studies; L98.9 Disorder of the skin and subcutaneous tissue, unspecified; Z83.3 Family history of diabetes mellitus
CPT/HCPCS: 36415; 82043; 83525; 84439; 84480

== ENCOUNTER 2024-05-15 06:52 | Outpatient (CLI) | payer MEDICARE, MEDICAID, SELFPAY ==
--- NOTE | ~2024-05-15 | US_ITS ---
EXAMINATION: US renal BI, US retroperitoneal duplex ltd DATE: 05/15/2024 8:01 CDT INDICATION: Abnormal renal function tests TECHNIQUE: Sonographic imaging of the kidneys was performed with a 3.5 MHz transducer. Retroperitone al duplex sonogram of the renal arteries also obtained. FINDINGS: Renal echotexture is normal bilaterally without hydronephrosis, mass or stone. Right kidney measures 11.7 cm. 0.6 cm No focal flow abnormalities are seen in the renal arteries on color Doppler. The peak systoli c velocity ranges of the right and left renal arteries and aorta are 97 cm per second, 64 cm per seco nd, and 102 cm per second, respectively. The velocities and renal to aortic ratios are within normal limits. There is fatty infiltration of the liver. IMPRESSION: 1. No Doppler evidence of renal artery stenosis. 2: Unremarkable renal ultrasound. Reviewed, dictated and finalized at location A. IMPRESSION: 1. No Doppler evidence of renal artery stenosis. 2: Unremarkable renal ultrasound.
--- OUTSIDE RECORDS SUMMARY | 2024-05-15 06:55 | XMS_ITS | Encounter Summary ---
Author Organization [facility] Address [address] [facility] [place] [address] Care Team Providers Care Health Sciences Dean Name Role Phone Hebert Rebollar DO Primary Care Provider +1- [phone] Reason for Visit * Reason Onset Date Comments MEDICATION REFILL 12/19/2020 Encounter Details Date Type Department Care Team (Late st Contact Info) Description 12/19/2020 Refill [facility] [address] [place] [address] Jh Woodall MD [address] [place] [phone] MEDICATION REFILL Social History Tobacco Use Types [...] 12/20/2020 8:17 AM CST Last OV 07-02-20 ATIONS TECHNICIAN documented in this encounter Plan of Treatment Upcoming Encounters Date Type Department Care Team (Late st Contact Info) Description 04/30/2025 4:00 PM CDT Video Visit [facility] [address] [facility] [place] [address] Yennifer Wade APRN-HEALTH PROGRAM MANAGER [address] [place] [phone] documented as of this encounter Visit Diagnoses Not on filedocumented in this encounter Care Teams Health Sciences Dean Relationship Specialty Start Date End Date Hebert Rebollar DO PCP - General 05/16/16 documented as of this encounter
--- OUTSIDE RECORDS SUMMARY | 2024-05-15 06:55 | XMS_ITS | Encounter Summary ---
Author Organization [facility] Address [address] [facility] [place] [address] Care Team Providers Care Infection Control Nurse Name Role Phone Hebert Rebollar DO Primary Care Provider +1- [phone] Reason for Visit * Reason Onset Date Comments MEDICATION REFILL 06/16/2020 Encounter Details Date Type Department Care Team (Late Contact Info) Description 06/16/2020 Refill [facility] [address] [place] [address] Jh Woodall MD [address] [place] [phone] MEDICATION REFILL Social History Tobacco Use Types [...] Department Care Team (Late Contact Info) Description 04/30/2025 4:00 PM CDT Video Visit [facility] [address] [place] [phone] Yennifer Wade, FIRE OFFICER-PEOPLESOFT HCM DEVELOPER [address] [place] [address] documented as of this encounter Visit Diagnoses Diagnosis Migraine without aura and without status migrainosus, not intractable Migraine without aura, without mention of intractable migraine without mention of status migrainosus documented in this encounter Care Teams Infection Control Nurse Relationship Specialty Start Date End Date Hebert Rebollar DO PCP - General 05/16/16 documented as of this encounter
--- OUTSIDE RECORDS SUMMARY | 2024-05-15 06:55 | XMS_ITS | Encounter Summary ---
Author Organization [facility] Address [address] [facility] [place] [address] Care Team Providers Care Gse Mechanic Name Role Phone Hebert Rebollar DO Primary Care Provider +1- [phone] Reason for Visit * Reason Onset Date Comments MEDICATION REFILL 12/15/2019 Encounter Details Date Type Department Care Team (Late Contact Info) Description 12/15/2019 Refill [facility] [address] [place] [address] Jh Woodall MD [address] [place] [phone] MEDICATION REFILL Social History Tobacco Use Types [...] Video Visit [facility] [address] [place] [address], [facility] [place] [phone] Yennifer Wade, SHIFT BOSS-ENROLLMENT MANAGEMENT MANAGER [address] [place] [address] documented as of this encounter Visit Diagnoses Diagnosis Migraine without aura and without status migrainosus, not intractable Migraine without aura, without mention of intractable migraine without mention of status migrainosus documented in this encounter Care Teams Gse Mechanic Relationship Specialty Start Date End Date Hebert Rebollar DO PCP - General 05/16/16 documented as of this encounter
--- OUTSIDE RECORDS SUMMARY | 2024-05-15 06:55 | XMS_ITS | Encounter Summary ---
Author Organization [facility] Address [address] [facility] [place] [address] Care Team Providers Care Wind Field Service Manager Name Role Phone Hebert Rebollar DO Primary Care Provider Reason for Visit * Reason Onset Date Comments MEDICATION REFILL 11/19/2020 Encounter Details Date Type Department Care Team (Late Contact Info) Description 11/19/2020 Refill [facility] [address] [place] [address] Jh Woodall MD [address] [place] [phone] MEDICATION REFILL Social History Tobacco Use Types [...] Video Visit [facility] [address] [place] [phone] Yennifer Wade, LABOR SUPERVISOR-SENIOR ENERGY TRADER [address] [place] [address] documented as of this encounter Visit Diagnoses Diagnosis Migraine without aura and without status migrainosus, not intractable Migraine without aura, without mention of intractable migraine without mention of status migrainosus Bilateral occipital neuralgia Other syndromes affecting cervical region documented in this encounter Care Teams Wind Field Service Manager Relationship Specialty Start Date End Date Hebert Rebollar DO PCP - General 05/16/16 documented as of this encounter
--- OUTSIDE RECORDS SUMMARY | 2024-05-15 06:55 | XMS_ITS | Referral Summary ---
Author Organization [facility] Address [address] [place] [address] Care Team Providers Care Rabbit Dresser Name Role Phone Hebert Rebollar DO Primary Care Provider +1- [phone] Encounters Date Type Department Care Team Description 04/14/2024 [facility] [address] [place] [phone] Jh Woodall MD 04/11/2024 11:35 AM COIL TAPER Lab [address] [phone] Bilateral occipital neuralgia; Intractable migraine without aura and without status migrainosus 04/11/2024 11:00 AM COIL TAPER [facility] [address] [place] [phone] Jh Woodall MD Bilateral occipital neuralgia; [...] 6 hours as needed 0 Inhaler 0 7 Active zonisamide (ZONEGRAN) 100 mg capsule TAKE 4 CAPSULES BY MOUTH ONCE DAILY 1 Active amLODIPine (NORVASC) 10 mg tablet Take 1 tablet (10 mg total) by mouth daily Active mupirocin (BACTROBAN) 2 % ointment Apply topically 2 (two) times a day 4 Active gabapentin (NEURONTIN) 300 mg capsuleIndicati ons:Bilateral occipital neuralgia,Intra ctable migraine without aura and without status migrainosus Take 1 capsule (300 mg total) by mouth 3 (three) times a day 270 capsule 3 4 Active galcanezumab-gn lm (Emgality Syringe) 120 mg/mL syringeIndicati ons:Bilateral occipital neuralgia,Intra ctable migraine without aura and without status migrainosus Inject 120 mg under the skin every 30 (thirty) days 1 mL 11 4 Active naloxone (NARCAN) 4 mg/actuation spray,non-aeros olIndications:I ntractable migraine without aura and without status migrainosus Administer 1 spray into affected nostril(s) as needed for opioid reversal or respiratory depression Call 911. Administer a single spray in one nostril. Repeat every 3 minutes as needed if no or minimal response. 1 each 3 4 Active butalbital-acet aminophen-caffe ine-codeine (FIORICET WITH CODEINE) 87-823-00-30 mg per capsuleIndicati ons:Bilateral occipital neuralgia,Intra ctable migraine without aura and without status migrainosus Take 1 capsule by mouth every 6 (six) hours as needed for headaches (No additional Tylenol or acetaminophen with this medication.) 8 capsule 3 5 Active hydroCHLOROthia zide 12.5 mg tablet Take 1 tablet (12.5 mg total) by mouth daily 5 Active candesartan (ATACAND) 4 mg tabletIndicatio ns:Intractable migraine without aura and without status migrainosus Take 1 tablet (4 mg total) by mouth daily 30 tablet 11 5 026 Active ALPRAZolam (XANAX) 1 mg tabletIndicatio ns:Bilateral occipital neuralgia,Intra ctable migraine without aura and without status migrainosus Take 1 tablet (1 mg total) by mouth as needed for anxiety 8 tablet 3 5 Active Active Problems Problem Noted Date Diagnosed Date Intractable migraine without aura and without status migrainosus 10/03/2017 Assessment & Plan (04/11/2024 12:02 PM COIL TAPER): Patient has been doing well on Emgality [...] 12/11/2016 Assessment & Plan (04/11/2024 12:01 PM COIL TAPER): Continue zonisamide 400 mg daily. Follow up with the epilepsy clinic at [facility]. Social History Tobacco Use Types Packs/Day [...] on file Legal Sex Female 4:21 AM COIL TAPER Gender Identity Not on file Sexual Orientation Not on file Last Filed Vital Signs Vital Sign Reading Time Taken Comments Blood Pressure 132/98 04/11/2024 10:56 AM COIL TAPER Pulse 89 04/11/2024 10:56 AM COIL TAPER Temperature 36.3 C (97.3 F) 04/22/2020 9:16 AM COIL TAPER Respiratory Rate 17 09/20/2023 9:59 AM CDT Oxygen Saturation 99% 04/11/2024 10:56 AM COIL TAPER Inhaled Oxygen Concentration - - Weight 108.9 kg (240 lb) 04/11/2024 10:56 AM COIL TAPER Height 154.9 cm (5' 1) 04/11/2024 10:56 AM COIL TAPER Body Mass Index 45.35 04/11/2024 10:56 AM COIL TAPER Plan of Treatment Not on file Procedures Procedure Name Priority Date/Time Associated Diagnosis Comments EGFR Routine 04/11/2024 11:36 AM COIL TAPER Bilateral occipital neuralgia Intractable migraine without aura and without status migrainosus DIFFERENTIAL AUTO Routine 04/11/2024 11: 36 AM COIL TAPER Bilateral occipital neuralgia Intractable migraine without aura and without status migrainosus CBC WITH AUTO DIFFERENTIAL Routine 04/11/2024 11:36 AM COIL TAPER Bilateral occipital neuralgia Intractable migraine without aura and without status migrainosus COMPREHENSIVE METABOLIC PANEL Routine 04/11/2024 11:36 AM COIL TAPER Bilateral occipital neuralgia Intractable migraine without aura and without status migrainosus from Last 3 Months Results * eGFR (04/11/2024 11:36 AM COIL TAPER) eGFR 61 >=60 mL/min/1. 73 m2 Comment: [...] reviewed 2020. Blood 04/11/2024 11:3 6 AM COIL TAPER 04/11/2024 3:22 PM COIL TAPER us Jh Woodall MD LAB BLOOD ORDERABLES Dalia jaeger Result [facility] [address] Department [place] [address] * Differential, auto (04/11/2024 11:36 AM COIL TAPER) Neutrophil abs 3.7 1.5 - 6.5 K/cumm Imm gran abs 0.0 0.0 - 0.1 K/cumm [facility] Lymphocyte abs 2.6 0.8 - 3.3 K/cumm [facility] Monocyte abs 0.6 0.2 - 0.8 K/cumm [facility] Eosinophil abs 0.3 0.0 - 0.5 K/cumm [facility] Basophil abs 0.0 0.0 - 0.1 K/cumm [facility] Neutrophil pct 50.8 % [facility] Comment: Interpretive Data Percent cell count reference ranges are not reported, since discordance with absolute values may lead to misinterpretation of CBC data. Current Interpretive Data was last revised on 2017. Imm gran pct 0.4 % [facility] Comment: Interpretive Data Percent cell count reference ranges are not reported, since discordance with absolute values may lead to misinterpretation of CBC data. Current Interpretive Data was last revised on 2017. Lymphocyte pct 36.2 % [facility] Comment: Interpretive Data Percent cell count reference ranges are not reported, since discordance with absolute values may lead to misinterpretation of CBC data. Current Interpretive Data was last revised on 2017. Monocyte pct 8.5 % [facility] Comment: Interpretive Data Percent cell count reference ranges are not reported, since discordance with absolute values may lead to misinterpretation of CBC data. Current Interpretive Data was last revised on 2017. Eosinophil pct 3.6 % [facility] Comment: Interpretive Data Percent cell count reference ranges are not reported, since discordance with absolute values may lead to misinterpretation of CBC data. Current Interpretive Data was last revised on 2017. Basophil pct 0.5 % [facility] Comment: Interpretive Data Percent cell count reference ranges are not reported, since discordance with absolute values may lead to misinterpretation of CBC data. Current Interpretive Data was last revised on 2017. Blood 04/11/2024 11:3 6 AM COIL TAPER 04/11/2024 3:22 PM COIL TAPER Jh Woodall MD LAB BLOOD ORDERABLES Dalia jaeger Result [facility] [address] Department [place] [address] * CBC with auto differential (04/11/2024 11:36 AM COIL TAPER) WBC 7.3 3.8 - 9.9 K/cumm Hgb 14.2 11.9 - 15.5 g/dL [facility] Hct 41.3 35.6 - 45.5 % [facility] Plt 363 150 - 400 K/cumm [facility] MPV 9.6 9.1 - 12.3 fL [facility] RBC 4.70 3.90 - 5.20 M/cumm [facility] MCV 87.9 81.3 - 96.4 fL [facility] MCH 30.2 27.1 - 33.3 pg [facility] MCHC 34.4 32.3 - 35.7 g/dL [facility] RDW CV 13.7 11.1 - 14.9 % [facility] RDW SD 44.1 35.7 - 48.1 fL [facility] NRBC abs 0.00 0.00 - 0.01 K/cumm [facility] Blood 04/11/2024 11:3 6 AM COIL TAPER 04/11/2024 3:22 PM COIL TAPER Jh Woodall MD LAB BLOOD ORDERABLES Dalia jaeger Result [facility] [address] Department [place] [address] * (ABNORMAL) Comprehensive metabolic panel (04/11/2024 11:36 AM COIL TAPER) Sodium 139 135 - 145 mmol/L Potassium, pl 3.4 3.3 - 4.9 mmol/L [facility] Chloride 103 97 - 110 mmol/L [facility] CO2 19(L) 22 - 32 mmol/L [facility] Anion gap 17(H) 2 - 15 mmol/L [facility] BUN 19 6 - 25 mg/dL [facility] Creatinine 1.16(H) 0.60 - 1.10 mg/dL [facility] Glucose 104 70 - 199 mg/dL [facility] Comment: Interpretive Data Fasting glucose >/= 126 [...] 2022. Calcium 9.4 8.5 - 10.3 mg/dL [facility] Bilirubin, total 0.2 0.1 - 1.2 mg/dL [facility] Protein, pl 7.6 6.5 - 8.5 g/dL [facility] Albumin 4.4 3.5 - 5.0 g/dL [facility] Alk phos 93 40 - 130 Units/L [facility] ALT 19 7 - 45 Units/L [facility] AST 18 10 - 45 Units/L [facility] Blood 04/11/2024 11:3 6 AM COIL TAPER 04/11/2024 3:22 PM COIL TAPER Jh Woodall MD LAB BLOOD ORDERABLES Dalia jaeger Result [facility] [address] Department [place] [address] from Last 3 Months Insurance [employer] MEDICARE HMO Care Teams Rabbit Dresser Relationship Specialty Start Date End Date Hebert Rebollar DO PCP - General 05/12/16
--- OUTSIDE RECORDS SUMMARY | 2024-05-15 06:55 | XMS_ITS | Clinical Summary ---
Author Organization [facility] Address [address] [place] [address] Care Team Providers Care Payroll And Benefits Analyst Name Role Phone Hebert Rebollar DO Primary Care Provider +1- [phone] Allergies Active Allergy Reactions Criticality Noted Date [...] Active butalbital-acet aminophen-caffe ine-codeine (FIORICET WITH CODEINE) 16-058-05-30 mg per capsuleIndicati ons:Bilateral occipital neuralgia,Intra ctable [...] 10/03/2017 Assessment & Plan (04/11/2024 12:02 PM WIRELESS STORE MANAGER): Patient has been doing well on Emgality [...] 12/11/2016 Assessment & Plan (04/11/2024 12:01 PM WIRELESS STORE MANAGER): Continue zonisamide 400 mg daily. Follow up with the epilepsy clinic at [facility]. Encounters Date Type Department Care Team Description 04/14/2024 Results [facility] [address] [place] [phone] Jh Woodall MD 04/11/2024 11:35 AM WIRELESS STORE MANAGER Lab [place] [id number] [facility] [place] [address] Bilateral occipital neuralgia; Intractable migraine without aura and without status migrainosus 04/11/2024 11:00 AM WIRELESS STORE MANAGER [facility] [address] [place] [phone] Jh Woodall MD Bilateral occipital neuralgia; Intractable [...] on file Legal Sex Female 4:21 AM WIRELESS STORE MANAGER Gender Identity Not on file Sexual Orientation Not on file Obstetrics History Last Filed Vital Signs Vital Sign Reading Time Taken Comments Blood Pressure 132/98 04/11/2024 10:56 AM WIRELESS STORE MANAGER Pulse 89 04/11/2024 10:56 AM WIRELESS STORE MANAGER Temperature 36.3 C (97.3 F) 04/22/2020 9:16 AM WIRELESS STORE MANAGER Respiratory Rate 17 09/20/2023 9:59 AM CDT Oxygen Saturation 99% 04/11/2024 10:56 AM WIRELESS STORE MANAGER Inhaled Oxygen Concentration - - Weight 108.9 kg (240 lb) 04/11/2024 10:56 AM WIRELESS STORE MANAGER Height 154.9 cm (5' 1) 04/11/2024 10:56 AM WIRELESS STORE MANAGER Body Mass Index 45.35 04/11/2024 10:56 AM WIRELESS STORE MANAGER Plan of Treatment Health Maintenance Due Date Last Done Comments Breast Cancer Screening-Mammogram 1983 Cervical Cancer Screening 1983 Depression Screening 1983 Hepatitis C Screening 1985 DTaP/Tdap/Td Vaccine (1 - Tdap) 07/19/1994 Varicella Vaccines (1 of 2 - 13+ 2-dose series) 07/19/1996 Hepatitis B Screening 07/19/2001 Regular Well Visit/Exam 18-64 07/19/2001 Covid-19 Vaccine (2 - 2023-2 5 season) 2023 08/06/2020 Influenza Vaccine (Season Ended) 2024 HPV Vaccines Aged Out No longer eligi ble based on patient's age to complete this topic Pneumococcal vaccine <65 Aged Out No longer eligible based on patient's age to complete this topic Procedures Procedure Name Priority Date/Time Associated Diagnosis Comments EGFR Routine 04/11/2024 11:36 AM WIRELESS STORE MANAGER Bilateral occipital neuralgia Intractable migraine without aura and without status migrainosus DIFFERENTIAL AUTO Routine 04/11/2024 11: 36 AM WIRELESS STORE MANAGER Bilateral occipital neuralgia Intractable migraine without aura and without status migrainosus CBC WITH AUTO DIFFERENTIAL Routine 04/11/2024 11:36 AM WIRELESS STORE MANAGER Bilateral occipital neuralgia Intractable migraine without aura and without status migrainosus COMPREHENSIVE METABOLIC PANEL Routine 04/11/2024 11:36 AM WIRELESS STORE MANAGER Bilateral occipital neuralgia Intractable migraine without aura and without status migrainosus from Last 3 Months Results * eGFR (04/11/2024 11:36 AM WIRELESS STORE MANAGER) eGFR 61 >=60 mL/min/1. 73 m2 Comment: [...] reviewed 2020. Blood 04/11/2024 11:3 6 AM WIRELESS STORE MANAGER 04/11/2024 3:22 PM WIRELESS STORE MANAGER us Aninda Gaby Jose C MD LAB BLOOD ORDERABLES Dalia jaeger Result [facility] [address] Department [place] [address] * Differential, auto (04/11/2024 11:36 AM WIRELESS STORE MANAGER) Neutrophil abs 3.7 1.5 - 6.5 K/cumm Imm gran abs 0.0 0.0 - 0.1 K/cumm [facility] Lymphocyte abs 2.6 0.8 - 3.3 K/cumm [facility] Monocyte abs 0.6 0.2 - 0.8 K/cumm [facility] Eosinophil abs 0.3 0.0 - 0.5 K/cumm [facility] Basophil abs 0.0 0.0 - 0.1 K/cumm [facility] Neutrophil pct 50.8 % [facility] Comment: Interpretive Data Percent cell count reference ranges are not reported, since discordance with absolute values may lead to misinterpretation of CBC data. Current Interpretive Data was last revised on 2017. Imm gran pct 0.4 % [facility] Comment: Interpretive Data Percent cell count reference ranges are not reported, since discordance with absolute values may lead to misinterpretation of CBC data. Current Interpretive Data was last revised on 2017. Lymphocyte pct 36.2 % [facility] Comment: Interpretive Data Percent cell count reference ranges are not reported, since discordance with absolute values may lead to misinterpretation of CBC data. Current Interpretive Data was last revised on 2017. Monocyte pct 8.5 % [facility] Comment: Interpretive Data Percent cell count reference ranges are not reported, since discordance with absolute values may lead to misinterpretation of CBC data. Current Interpretive Data was last revised on 2017. Eosinophil pct 3.6 % [facility] Comment: Interpretive Data Percent cell count reference ranges are not reported, since discordance with absolute values may lead to misinterpretation of CBC data. Current Interpretive Data was last revised on 2017. Basophil pct 0.5 % [facility] Comment: Interpretive Data Percent cell count reference ranges are not reported, since discordance with absolute values may lead to misinterpretation of CBC data. Current Interpretive Data was last revised on 2017. Blood 04/11/2024 11:3 6 AM WIRELESS STORE MANAGER 04/11/2024 3:22 PM WIRELESS STORE MANAGER Jh Woodall MD LAB BLOOD ORDERABLES Dalia l Result Performing Organization Address City/[facility]/ZIP Co de Phone Number [facility] [address] [place] [address] * CBC with auto differential (04/11/2024 11:36 AM WIRELESS STORE MANAGER) [facility] WBC 7.3 3.8 - 9.9 K/cumm Hgb 14.2 11.9 - 15.5 g/dL [facility] Hct 41.3 35.6 - 45.5 % [facility] Plt 363 150 - 400 K/cumm [facility] MPV 9.6 9.1 - 12.3 fL [facility] RBC 4.70 3.90 - 5.20 M/cumm [facility] MCV 87.9 81.3 - 96.4 fL [facility] MCH 30.2 27.1 - 33.3 pg [facility] MCHC 34.4 32.3 - 35.7 g/dL [facility] RDW CV 13.7 11.1 - 14.9 % [facility] RDW SD 44.1 35.7 - 48.1 fL [facility] NRBC abs 0.00 0.00 - 0.01 K/cumm [facility] Blood 04/11/2024 11:3 6 AM WIRELESS STORE MANAGER 04/11/2024 3:22 PM WIRELESS STORE MANAGER us Jh Woodall MD LAB BLOOD ORDERABLES Dalia l Result Performing Organization Address City/[facility]/ZIP Co de Phone Number [facility] [address] Department of [employer] [place], [place] [id number] * (ABNORMAL) Comprehensive metabolic panel (04/11/2024 11:36 AM WIRELESS STORE MANAGER) Sodium 139 135 - 145 mmol/L Potassium, pl 3.4 3.3 - 4.9 mmol/L [facility] Chloride 103 97 - 110 mmol/L [facility] CO2 19(L) 22 - 32 mmol/L [facility] Anion gap 17(H) 2 - 15 mmol/L [facility] BUN 19 6 - 25 mg/dL [facility] Creatinine 1.16(H) 0.60 - 1.10 mg/dL [facility] Glucose 104 70 - 199 mg/dL [facility] Comment: Interpretive Data Fasting glucose [...] 2022. Calcium 9.4 8.5 - 10.3 mg/dL [facility] Bilirubin, total 0.2 0.1 - 1.2 mg/dL [facility] Protein, pl 7.6 6.5 - 8.5 g/dL [facility] Albumin 4.4 3.5 - 5.0 g/dL [facility] Alk phos 93 40 - 130 Units/L [facility] ALT 19 7 - 45 Units/L [facility] AST 18 10 - 45 Units/L [facility] Blood 04/11/2024 11:3 6 AM WIRELESS STORE MANAGER 04/11/2024 3:22 PM WIRELESS STORE MANAGER us Jh Woodall MD LAB BLOOD ORDERABLES Dalia jaeger Result [facility] [address] Department [place] [address] from Last 3 Months Insurance IDPA IDPA [facility] MEDICARE HMO Care Teams Payroll And Benefits Analyst Relationship Specialty Start Date End Date Hebert Rebollar DO PCP - General 05/12/16
--- OUTSIDE RECORDS SUMMARY | 2024-05-15 06:55 | XMS_ITS | Encounter Summary ---
Author Organization [facility] Address [address] [place] [address] Care Team Providers Care Ship Officer Name Role Phone Hebert Rebollar DO Primary Care Provider +1- [phone] Encounter Details Date Type Department Care Team (Late st Contact Info) Description 04/14/2024 Results [facility] [address] [facility] [address], [place] [address] Jh Woodall MD [address] [facility] [address] [place] [address] Social History Tobacco Use Types Packs/Day Years [...] on file Legal Sex Female 4:21 AM MANAGER OF EMPLOYEE RELATIONS Gender Identity Not on file Sexual Orientation Not on file documented as of this encounter Plan of Treatment Not on file documented as of this encounter Visit Diagnoses Not on filedocumented in this encounter Care Teams Ship Officer Relationship Specialty Start Date End Date Hebert Rebollar DO PCP - General 05/12/16 documented as of this encounter
--- OUTSIDE RECORDS SUMMARY | 2024-05-15 06:55 | XMS_ITS | Encounter Summary ---
Author Organization [facility] Address [address] [facility] [address] Care Team Providers Care Fig Washer Name Role Phone Hebert Rebollar DO Primary Care Provider Reason for Visit * Reason Onset Date Comments MEDICATION REFILL 12/20/2020 Encounter Details Date Type Department Care Team (Late Contact Info) Description 12/20/2020 Refill [facility] [address] [place] [address] Jh Woodall MD [address] [place] [phone] MEDICATION REFILL Social History Tobacco Use Types [...] Video Visit [facility] [address] [place] [phone] Yennifer Wade, REGISTERED SAFETY ENGINEER-BOTTLING LINE OPERATOR [address] [place] [address] documented as of this encounter Visit Diagnoses Not on filedocumented in this encounter Care Teams Fig Washer Relationship Specialty Start Date End Date Hebert Rebollar DO PCP - General 05/16/16 documented as of this encounter
--- OUTSIDE RECORDS SUMMARY | 2024-05-15 06:55 | XMS_ITS | Encounter Summary ---
Author Organization [facility] Address [address] [facility] [place] [address] Care Team Providers Care Fisheries Inspector Name Role Phone Hebert Rebollar DO Primary Care Provider Reason for Visit * Reason Onset Date Comments MEDICATION REFILL 07/24/2022 Encounter Details Date Type Department Care Team (Late st Contact Info) Description 07/24/2022 Refill [facility] [address] [place] [address], [place] [address] Jh Woodall MD [address] [place] [phone] MEDICATION REFILL Social History Tobacco Use [...] Description 04/30/2025 4:00 PM CDT Video Visit [facility] [address] [place] [phone] Yennifer Wade APRN-OCEAN BIOLOGIST [address] [place] [phone] documented as of this encounter Visit Diagnoses Not on filedocumented in this encounter Care Teams Fisheries Inspector Relationship Specialty Start Date End Date Hebert Rebollar DO PCP - General 05/16/16 documented as of this encounter
--- OUTSIDE RECORDS SUMMARY | 2024-05-15 06:55 | XMS_ITS | Clinical Summary ---
Author Organization [facility] Address [address] [place] [address] Care Team Providers Care Clicking Machine Operator Name Role Phone Hebert Rebollar DO Primary Care Provider [phone] Source Comments [facility],non-owned Affiliates and Associated Physician Practices is amultiple site organization consisting of ambulatory clinics and hospital sitesin [place], [place] and [place]. This disclosure is being madepursuant to the Care Everywhere program and may not contain all information available regarding this patient. Last updated 17.[facility] Allergies Active Allergy Reactions Criticality Noted Date Comments Azithromycin Skin Reactions Medium 07/04/2016 Naproxen Swelling Low 07/04/2016 Sumatriptan Other 04/19/2023 Panic attack Medications * Be aware that medications may not be up to date on this document. Alwaysverify current medications with the patient. Medication Sig Dispensed Refills Start Date End Date Status albuterol HFA (PROVENTIL;PRUDENCE KORY;PROAIR) 108 (90 Base) MCG/ACT inhaler Inhale 2 (two) puffs by mouth every 6 hours as needed Active albuterol (PROVENTIL;PRUDENCE KORY) (2.5 MG/3ML) 0.083% nebulizer solution Inhale by mouth 4 times daily as needed for Shortness of Breath or Wheezing Active amLODIPine (Norvasc) 10 MG tablet Take 1 (one) tablet by mouth once daily 09/13/2021 Active CPAP Use as directed Active gabapentin (Neurontin) 300 MG capsuleIndicatio ns:Migraine without aura and without status migrainosus, not intractable,Bila teral occipital neuralgia Take 1 (one) capsule by mouth 3 times daily 270 capsule 1 03/06/2023 Active Galcanezumab-gnl m (Emgality) 120 MG/ML auto-injector penIndications:M igraine without aura and without status migrainosus, not intractable 2 injection (240 mg) first month [loading dose] followed by 1 injection (120 mg) monthly. 2 mL 5 03/07/2023 Active nxnv-phfc-bvzplk ital-codeine (Fioricet With Codeine) 28-546-80-30 MG capsuleIndicatio ns:Migraine without aura and without status migrainosus, not [...] needed for Anxiety 15 tablet 08/06/2023 Active candesartan (Atacand) 8 MG tablet 04/24/2024 Active hydroCHLOROthiaz aura (Hydrodiuril) 12.5 MG TABS 03/20/2024 Active metFORMIN (Glucophage) 500 MG tablet 04/25/2024 Active naloxone HCl (Narcan) 4 MG/0.1ML nasal spray ADMINISTER A SINGLE SPRAY IN ONE NOSTRIL UPON SIGNS OF OPIOID OVERDOSE. CALL 911. REPEAT AFTER 3 MINUTES IF NO RESPONSE. 09/20/2023 Active potassium chloride ER 10 MEQ tablet 04/25/2024 Active Semaglutide (OZEMPIC, 0.25 OR 0.5 MG/DOSE, SC) 04/25/2024 Active zonisamide (Zonegran) 100 MG capsuleIndicatio ns:Seizures (HCC) Take 4 (four) capsules by mouth at bedtime 360 capsule 3 05/01/2024 Active butalbital-aceta minophen-caffein e (Fioricet) 50-325-40 MG tabletIndication s:Migraine without aura and without status migrainosus, not intractable Take 1 (one) tablet by mouth every 6 hours as needed for Headache (No additional Tylenol or acetaminophen with this medication.) 15 tablet 1 06/14/2023 5 Discontinu ed(Tx Complete) zonisamide (Zonegran) 100 MG capsule TAKE 4 CAPSULES ONE TIME DAILY 360 capsule 3 01/31/2024 5 Discontinu ed(Reorder ) Active Problems Problem Noted Date Diagnosed Date Intractable migraine without aura and without status migrainosus 10/03/2017 Bilateral occipital neuralgia 10/03/2017 Seizures 12/11/2016 Encounters Date Type Department Care Team Description 05/01/2024 4:00 PM CDT Video Visit [facility] - Neurology [address] [place] [address] [phone] Yennifer Wade APRN-LUIS ENRIQUE Seizures from Last 3 Months Social History Tobacco [...] 36.5 C (97.7 F) 01/25/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 - Neurology [address] [place] [address] [phone] Yennifer Wade, SPORTS UMPIRE-CIRCUIT CLERK [address] [place] [phone] Health Maintenance Due Date Last Done Comments LIPID TESTING 1983 MAMMOGRAM 1983 Opioid Medication Agreement - Annual 1983 PAP SMEAR 1983 HIV SCREENING 07/19/1998 HEPATITIS C SCREENING 07/15/2001 DTAP/TDAP/TD VACCINES (1 - Tdap) 07/19/2002 HEPATITIS B VACCINE (1 of 3 - 19+ 3-dose series) 07/19/2002 COVID-19 VACCINE (1 - 2023-2 5 season) 2023 DEPRESSION SCREENING 02/13/2024 MEDICARE AWV CALENDAR YEAR 2024 SCREENING FOR DIABETES 04/22/2024 9, 12/25/2016 INFLUENZA VACCINE (Season Ended) 2024 ZOSTER VACCINE (1 of 2) 07/19/2033 HIB [...] Resulting Agency Comment Lab [facility] performed at: [facility] [address] [facility] [id number] Malcom Holguin MD LAB - CHEMISTRY ORDERABLES [facility] INSURANCE BILL [address] [place] [address] from Last 3 Months or Most Recently Relevant to Health Maintenance Care Teams Clicking Machine Operator Relationship Specialty Start Date End Date Hebert Rebollar DO PCP - General 05/16/16
== END 2024-05-15 06:53 | disposition home or self-care (01) ==
PROVIDERS: PCP Internal Medicine; Visit Provider Internal Medicine
DX: N18.31 Chronic kidney disease, stage 3a (principal); N28.9 Disorder of kidney and ureter, unspecified; R94.4 Abnormal results of kidney function studies
CPT/HCPCS: 76775; 93976

== ENCOUNTER 2024-06-08 13:16 | Emergency (ER) | payer MEDICARE, MEDICAID, SELFPAY ==
--- NOTE | 2024-06-08 13:21 | ED.SKABFB ---
HPI - Skin/Abscess/Foreign Bdy General Chief complaint: Skin/Abscess/Foreign Body Stated complaint: Skin Irritation Time Seen by Provider: 06/08/24 13:21 Source: patient Mode of arrival: ambulatory Limitations: no limitations History of Present Illness HPI narrative: Patient is a 38 year old with a history of seizures/ brain surgery presents to the clinic today with swelling to her right lower lip, right sided throat pain and right sided face pain. She said that she woke up like this. She does states that she has an allergy to naproxen, and she took ibuprofen last night. She says that when she takes naproxen she had a similar reaction as she has today. Patient is endorsing difficulty with swallowing, but she is talking, maintaining her secretions, and difficulty expressing her feelings. Denies any shortness of breath, nausea, vomiting, dizziness or itching. Denies any other exposures. Related Data Home Medications ?Medication ?Instructions ?Recorded ?Confirmed ?Last Taken ?Type alprazolam 1 mg tablet 1 mg PO DAILY 03/03/19 06/08/24 Unknown History zonisamide 100 mg capsule 400 mg PO DAILY 03/03/19 06/08/24 Unknown History gabapentin 300 mg capsule 300 mg PO TID 09/16/20 06/08/24 Unknown History galcanezumab-gnlm 120 mg/mL 120 mg subcut MONTHLY 06/28/23 06/08/24 Unknown History subcutaneous syringe (Emgality) cholecalciferol (vitamin D3) 25 25 mcg PO DAILY 07/12/23 06/08/24 Unknown History mcg (1,000 unit) capsule butalbital 50 mg-acetaminophen 325 cap 06/08/24 Unknown History mg-caffeine 40 mg-codeine 30 mg cap Allergies Allergy/AdvReac Type Severity Reaction Status Date / Time azithromycin Allergy Unknown face Verified 06/08/24 13:54 swelling naproxen Allergy Unknown face Verified 06/08/24 13:54 swelling prednisone Allergy Unknown HIVES Verified 06/08/24 13:54 sumatriptan AdvReac Intermediate panic Verified 06/08/24 13:54 attack Review of Systems Review of Systems: CONSTITUTIONAL: Denies body aches, fever, chills, or sweats. EYES: Denies visual changes, redness, or discharge. ENT: Denies rhinorrhea, congestion. Reports right sided throat pain. CARDIOVASCULAR: Denies chest pain, palpitations, or edema. RESPIRATORY: Denies cough or dyspnea. GASTROINTESTINAL: Denies abdominal pain, nausea, vomiting, or diarrhea. SKIN: ?Swelling to Right lower lip. MUSCULOSKELETAL: Denies back pain, joint pain, or myalgia. NEUROLOGIC: Denies headache, numbness, tingling, or weakness. All systems reviewed & are unremarkable except as noted in HPI and below PMFSH Past Medical History Medical History Obesity Family history of diabetes mellitus (DM) Insomnia Hyperlipidemia Hypertension Back pain Anxiety Depression Migraine Seizure Tendonitis of knee Vitamin D deficiency Shoulder pain Family History Family History Father Hypertension Mother Cerebrovascular accident Grandparent Family history of hypercholesterolemia Carcinoma of colon Family history of malignant neoplasm of breast Daughter Ulcerative colitis Daughter Ulcerative colitis Other Diabetes mellitus Family history of arthritis Family history of malignant neoplasm Social History Social History Social History: Caffeine-None Smoking status: Never smoker Alcohol intake: never Substance use: never Substance use type: does not use Do You Feel Safe in your Home?: Yes Lack of Transportation: No Lack of Food: Never True Current Housing: I Have Housing Concerned About Future Housing: No Difficulty Paying Gas/Electric Bills: No Difficulty Paying for Meds: No Currently Unemployed: No Education: High School Diploma/GED Difficulty w/ Childcare or Family Care: No Spiritual care concerns: No Comments At time of signature, I have reviewed and agree with nursing past medical, surgical, social and family history unless otherwise noted. Please see nursing chart for further information. There is no relevant family history pertinent to the presenting complaint. Exam Narrative: GENERAL: Well-appearing HEAD: Normocephalic, atraumatic. EYES: ?conjunctivae clear, and EOMI. ENT: Mucous membranes moist. Edema to right lower lip noted. No soft palate edema.No hoarse voice. Uvula midline. Neck with normal ROM. Oropharynx without edema, erythema or lesions. NECK: Supple. No lymphadenopathy CHEST: Clear to auscultation. No wheezing. No stridor. No drooling. No respiratory compromise. HEART: Regular rate and rhythm. SKIN: Warm, dry. Edema to right lower lip. ? NEURO: ?Alert and oriented x3.? Course Course Level of Care: Express Care Visit Vital Signs Vital signs: Vital Signs Temperature 97.8 F 06/08/24 13:25 Pulse Rate 86 06/08/24 13:25 Respiratory Rate 16 06/08/24 13:25 Blood Pressure 110/78 06/08/24 13:25 Pulse Oximetry 99 06/08/24 13:25 Temperature 97.8 F 06/08/24 13:25 Pulse Rate 86 06/08/24 13:25 Respiratory Rate 16 06/08/24 13:25 Blood Pressure 110/78 06/08/24 13:25 Pulse Oximetry 99 06/08/24 13:25 Reviewed MDM - Skin/Abscess/Foreign Bdy MDM Narrative Medical decision making narrative: Discussed physical exam findings c/w allergic reaction. Prednisone listed as an allergic reaction, but she states she has had solumedrol before without any difficultly. Solumedrol, Pepcid, and Benadryl given for allergic reaction. Upon reassessment patient states that she feels better. Discussed at length the danger triangle. Offered ER transfer, but she declines due to feeling better. She states she will go to ER if needed, and she will be with her mom. Advised supportive measures and signs/symptoms to go to the ER. Pt is appropriate for outpatient treatment and follow up. Differential Diagnosis Differential diagnosis: Likely allergic reaction to drug, cellulitis and insect bites Critical Care Time Critical Care Time Critical Care Time: No Discharge Plan Discharge Clinical Impression: Allergic reaction Qualifiers: Encounter type: initial encounter Qualified Code(s): T78.40XA - Allergy, unspecified, initial encounter Patient Disposition: Home Condition: Stable Instructions: General Allergic Reaction (ED) Additional Instructions: DO NOT TAKE IBUPROFEN, NAPROXEN, ALEVE, or MOTRIN! Take steroids and Pepcid as directed. Start taking tomorrow 06/09/24. Benadryl every 8 hours as needed Cool compresses to the sites of itching, avoid hot water. Avoid scratching to reduce the risk of infection Follow up with your primary care provider tomorrow morning. Call 911 for worsening symptoms or concerns (lip, tongue, throat swelling/itching, trouble breathing etc) Patient Language: Irish Prescriptions: New famotidine [Pepcid] 40 mg tablet 40 mg PO DAILY 5 Days Qty: 5 0RF methylprednisolone [Medrol (Matheus)] 4 mg tablets,dose pack See Rx Instructions .ROUTE .COMPLEX Qty: 21 0RF Rx Instructions: Take medication as directed on the package. Start taking tomorrow morning. No Action kgsktoepcr-mqbjgtcwlc-zxu-cod 77-171-79-30 mg capsule zonisamide 100 mg capsule 400 mg PO DAILY Emgality Syringe 120 mg/mL syringe 120 mg subcut MONTHLY mupirocin calcium 2 % cream 1 applic topical BID Qty: 15 0RF albuterol sulfate [ProAir HFA] 90 mcg/actuation HFA aerosol inhaler 1 puff INHALATION Q4H PRN (Reason: bronchospasm) Qty: 6.7 0RF candesartan 8 mg tablet 8 mg PO DAILY Qty: 30 3RF alprazolam 1 mg tablet 1 mg PO DAILY gabapentin 300 mg capsule 300 mg PO TID cholecalciferol (vitamin D3) 25 mcg (1,000 unit) capsule 25 mcg PO DAILY hydrochlorothiazide 12.5 mg tablet 12.5 mg PO DAILY Qty: 90 0RF metformin 500 mg tablet 500 mg PO BIDWMEAL Qty: 180 0RF Rx Instructions: Take one tab twice daily with food potassium chloride [Klor-Con 10] 10 mEq tablet extended release 10 meq PO DAILY Qty: 30 2RF Rx Instructions: Take one tab daily semaglutide 0.25 mg or 0.5 mg(2 mg/1.5 mL) pen injector 0.25 mg subcut WEEKLY Qty: 1.5 0RF Rx Instructions: for 4 weeks amlodipine 10 mg tablet 10 mg PO DAILY Qty: 90 1RF Follow-up/Referrals: PHYSICIAN,SPORT INTERN [Primary Care Provider] - Time of Disposition: 14:46
[2024-06-08 13:25] VITALS: BP 110/78; PULSE 86; RESP 16; TEMP 36.6; O2SAT 99
[2024-06-08] MEDS: methylPREDNISolone SOD SUCC 125 MG VIAL IM (14:01)
[2024-06-08] MEDS: FAMOTIDINE 20 MG TABLET 40 MG PO (14:02)
[2024-06-08] MEDS: diphenhydrAMINE HCl CAP 25 MG CAPSULE PO (14:03)
== END 2024-06-08 15:00 | disposition home or self-care (01) ==
DX: T78.3XXA Angioneurotic edema, initial encounter (principal); T39.315A Adverse effect of propionic acid derivatives, initial encounter; I10 Essential (primary) hypertension; E78.5 Hyperlipidemia, unspecified; G40.909 Epilepsy, unspecified, not intractable, without status epilepticus; F41.9 Anxiety disorder, unspecified; E66.9 Obesity, unspecified; E55.9 Vitamin D deficiency, unspecified; Z68.41 Body mass index [BMI] 40.0-44.9, adult
CPT/HCPCS: 96372; 99213; A9270; G0463; J2919

== ENCOUNTER 2024-08-07 09:44 | Outpatient (CLI) | payer MEDICARE, MEDICAID, SELFPAY ==
[2024-08-07 12:40] LABS: Basophils Percent Auto 0.2 % (0.2-1.2); Eosinophils Absolute Auto 0.2 K/mm3 (0-0.3); Eosinophils Percent Auto 2.5 % (0-4.4); Hemoglobin 13.7 g/dL (12.0-15.0); Immature Granulocyte Absolute 0.04 K/mm3 (0.00-0.031); Immature Granulocyte Percent A 0.4 % (0-0.5); Lymphocytes Absolute Auto 3.57 K/mm3 (0.9-3.2); Lymphocytes Percent Auto 38.6 % (18.3-44.2); Mean Corpuscular HGB Conc 33.4 g/dl (32-36); Mean Corpuscular Hemoglobin 29.9 pg (26-34); Mean Corpuscular Volume 89.5 fl (80-100); Mean Platelet Volume 9.7 fl (7.4-10.4); Monocytes Absolute Auto 0.7 K/mm3 (0.1-0.6); Monocytes Percent Auto 7.1 % (2.6-8.5); Neutrophils Absolute Auto 4.7 K/mm3 (1.3-6.7); Neutrophils Percent Auto 51.2 % (45.5-73.1); Platelet Count Result 372 k/mm3 (150-375); Red Blood Count 4.58 M/mm3 (4.2-5.4); Red Cell Distribution Width 13.2 % (11.5-14.5); White Blood Count 9.2 K/mm3 (4.5-10.0)
[2024-08-07 12:51] LABS: Alanine Aminotransferase 24 U/L (6-35); Albumin Level 4.5 g/dL (3.5-5.1); Alkaline Phosphatase 70 U/L (38-126); Anion Gap 13 mmol/L (4-12); Aspartate Amino Transferase 33 U/L (14-36); Bilirubin,Total 0.2 mg/dL (0.2-1.3); Blood Urea Nitrogen 15 mg/dL (7-17); Calcium 9.1 mg/dL (8.4-10.2); Carbon Dioxide 21 mmol/L (22-30); Chloride 105 mmol/L (98-107); Estimated Glomerular Filt Rate 55; Glucose 95 mg/dL (65-110); Magnesium 2.1 mg/dL (1.6-2.3); Potassium 3.9 mmol/L (3.4-5.0); Sodium 139 mmol/L (137-145)
== END 2024-08-07 09:45 | disposition home or self-care (01) ==
PROVIDERS: PCP Internal Medicine; Visit Provider Internal Medicine
DX: N18.31 Chronic kidney disease, stage 3a (principal); E87.6 Hypokalemia; E87.1 Hypo-osmolality and hyponatremia; D75.839 Thrombocytosis, unspecified
CPT/HCPCS: 36415; 80053; 83735; 85025

== ENCOUNTER 2024-08-26 14:45 | Outpatient (RCR) | payer MEDICARE, MEDICAID, SELFPAY ==
[2024-05-29 09:25] VITALS: BMI 44.6
[2024-05-29 09:30] VITALS: BMI 44.6
[2024-06-19 13:30] VITALS: BMI 44.6
[2024-08-26 14:45] VITALS: BMI 41.1
[2024-08-26 15:45] VITALS: BMI 41.1
--- NOTE | 2024-08-26 15:58 | PCDIET ---
08/26/24 MNT consult and follow ups completed. See Nurse/Allied health -> Nutrition [id number]. Thank you for this referral.
== END 2024-08-27 23:59 | disposition home or self-care (01) ==
LOC: ANHDMC 14:45
PROVIDERS: PCP Internal Medicine; Visit Provider Internal Medicine
DX: E66.01 Morbid (severe) obesity due to excess calories (principal); N18.31 Chronic kidney disease, stage 3a; Z71.3 Dietary counseling and surveillance; Z68.41 Body mass index [BMI] 40.0-44.9, adult
CPT/HCPCS: 97802; 97803